=== PATIENT | female | born 1970 | race Caucasian/White ===

== ENCOUNTER 2020-10-03 12:53 | Outpatient (REF) | payer OTHER, SELFPAY ==
--- NOTE | ~2020-10-03 | MM_ITS ---
EXAMINATION: MM SCREENING DIGITAL BREAST TOMOSYNTHESIS, BILATERAL CLINICAL INFORMATION: Screening. Asymptomatic. Age 49. No prior breast imaging. No known family history breast cancer. The lifetime risk of breast cancer based on the Tyrer-Cuzick Model is 7%. COMPARISON: None (current study represents initial baseline exam). TECHNIQUE: Digital breast tomosynthesis is performed in both the craniocaudal and mediolateral oblique views along with computer-aided detection (CAD). Synthesized 2D images are generated from the tomosynthesis. FINDINGS: There are scattered areas of fibroglandular density (ACR BI-RADS breast composition Category b). The left breast is unremarkable. There is no significant mass or architectural abnormality. Neither breast shows abnormal calcifications. The axilla and skin contours are unremarkable. The right breast has grouped smooth partially obscured nodularity upper outer quadrant ranging in size 2-5 mm better appreciated on tomography. This may represent focal fibrocystic changes. There is a group of 2 or 3 nodules mid central upper outer quadrant and smaller more numerous nodularity more posteriorly upper outer quadrant. Patient will be recalled for additional imaging. MM/MM tomosynthesis screening BI IMPRESSION: 1. Right: Regional grouped small nodularity upper outer quadrant, possibly fibrocystic changes. 2. Left: No mammographic evidence of malignancy. ASSESSMENT: BI-RADS 0: Incomplete - Need Additional Imaging Evaluation RECOMMENDATION: 1. Additional views of the right breast (3-D spot exaggerated CC, 3-D spot ML). 2. Targeted ultrasound right breast. 3. Radiology department staff will contact the patient for additional imaging. This patient's information was entered into a reminder system with a target due date for their next mammogram.
== END 2020-10-03 12:54 | disposition home or self-care (01) ==
LOC: HO.MAMMO 12:53
PROVIDERS: Visit Provider Internal Medicine
DX: Z12.31 Encounter for screening mammogram for malignant neoplasm of breast (principal)
CPT/HCPCS: 77063; 77067

== ENCOUNTER 2020-10-08 12:45 | Outpatient (REF) | payer OTHER, SELFPAY ==
--- NOTE | ~2020-10-08 | MM_ITS ---
EXAMINATION: MM DIAGNOSTIC DIGITAL BREAST TOMOSYNTHESIS, RIGHT US DIAGNOSTIC ULTRASOUND BREAST, RIGHT CLINICAL INFORMATION: Recall from baseline exam for fine grouped nodularity upper outer quadrant and central 9:00 right breast. No known family history breast cancer. TC score 7%. COMPARISON: Mammography: 10/03/2020 TECHNIQUE: Digital breast tomosynthesis is performed. 2D images are generated from the tomosynthesis. The following views are obtained: Spot CC, spot ML x2 Ultrasound right breast is targeted to the outer and upper outer quadrant. Grayscale imaging and color Doppler are performed without and with harmonics. FINDINGS: There are scattered areas of fibroglandular density (ACR BI-RADS breast composition Category b). The grouped nodularity posterior upper outer quadrant appears less conspicuous. There is no dominant nodularity or architectural distortion. There are 2 small nodule central 9:00 position with smooth margins. Ultrasound demonstrates 4 mm cyst central 9:00 position 8 cm from nipple with smaller adjacent satellite cyst. There is questionable fine micronodularity in the upper outer quadrant under 3 mm. No dominant nodularity or architectural distortion. No focal duct ectasia. Results are discussed with the patient and her at time of visit. MM/MM tomosynthesis added views R IMPRESSION: 1. Small cysts central 9:00 right breast mid depth. 2. Probable benign fine fibronodular parenchymal pattern upper outer right breast on baseline imaging. ASSESSMENT: BI-RADS 3: Probably Benign RECOMMENDATION: Diagnostic right mammography in 6 months. This patient's information was entered into a reminder system with a target due date for their next mammogram.
== END 2020-10-08 12:46 | disposition home or self-care (01) ==
LOC: HO.MAMMO 12:45
PROVIDERS: Visit Provider Internal Medicine
DX: N63.15 Unspecified lump in the right breast, overlapping quadrants (principal)
CPT/HCPCS: 76642; 77061; 77065

== ENCOUNTER 2020-12-27 08:58 | Outpatient (REF) | payer OTHER, SELFPAY ==
[2020-12-27 11:26] LABS: MANUAL DIFF FLAG NO
[2020-12-27 11:35] LABS: Basophils Absolute Auto 0.1 X10*3/uL (0.0-0.2); Basophils Percent Auto 0.6 % (0-2); Eosinophils Absolute Auto 0.3 X10*3/uL (0.0-0.4); Eosinophils Percent Auto 3.2 % (0-4); Hematocrit 35.4 % (37-47); Hemoglobin 12.1 g/dl (12.0-16.0); Imm Gran Abs Auto 0.03 X10*3/uL (0.00-0.03); Imm Gran Pct Auto 0.3 % (0.0-0.4); Lymphocytes Absolute Auto 3.1 X10*3/uL (1.2-4.9); Lymphocytes Percent Auto 36.1 % (20-40); Mean Corpuscular HGB Conc 34.2 g/dl (31.0-35.0); Mean Corpuscular Hemoglobin 32.7 pg (27.0-33.0); Mean Corpuscular Volume 95.7 fL (80-98); Mean Platelet Volume 9.1 fL (9.4-12.3); Monocytes Absolute Auto 0.9 X10*3/uL (0.1-1.2); Monocytes Percent Auto 10.4 % (2-11); Neutrophils Absolute Auto 4.3 X10*3/uL (2.0-8.3); Neutrophils Percent Auto 49.4 % (45-73); Platelet Count 404 X10*3/uL (160-400); Red Cell Distribution Width 12.3 % (11.0-16.0); White Blood Count 8.7 X10*3/uL (4.8-10.8)
[2020-12-27 11:51] LABS: Alanine Aminotransferase 16 U/L (0-31); Albumin Level 4.2 g/dL (3.5-5.0); Alkaline Phosphatase 63 U/L (39-117); Anion Gap 11 (12-20); Aspartate Amino Transferase 17 U/L (5-31); Bilirubin Total 0.5 mg/dL (0.0-1.0); Blood Urea Nitrogen 13 mg/dL (9-16); Calcium 9.2 mg/dL (8.4-10.2); Carbon Dioxide 24 mmol/L (22-29); Chloride 106 mmol/L (96-108); Cholesterol 191 mg/dL; Estimated Glomerular Filt Rate > 60; Glucose Fasting 90 mg/dL (60-99); HDL Cholesterol 45 mg/dL; LDL Cholesterol Calculated 131 mg/dl; Potassium 4.2 mmol/L (3.3-5.1); Sodium 137 mmol/L (135-145); Total Protein 6.6 g/dL (6.5-8.0); Triglycerides 77 mg/dL
[2020-12-27 12:19] LABS: TSH reflex Free T4 2.71 uIU/mL (0.32-4.0)
== END 2020-12-27 08:59 | disposition home or self-care (01) ==
LOC: HO.HMGCLDS 08:58
PROVIDERS: PCP Internal Medicine; Visit Provider Internal Medicine
DX: Z00.01 Encounter for general adult medical examination with abnormal findings (principal); E66.09 Other obesity due to excess calories; Z72.0 Tobacco use
CPT/HCPCS: 36415; 80053; 80061; 84443; 85025

== ENCOUNTER 2021-02-26 13:58 | Outpatient (REF) | payer OTHER, SELFPAY ==
[2021-02-26 14:58] LABS: Influenza A PCR NEGATIVE (Negative); Influenza B PCR NEGATIVE (Negative); Resp Syncy Virus RNA Qual PCR NEGATIVE (Negative); SARS COV2 PCR INHOUSE NEGATIVE (Negative)
== END 2021-02-26 13:59 | disposition home or self-care (01) ==
LOC: HO.LNP 13:58
PROVIDERS: Visit Provider Physician Assistant
DX: Z20.822 Contact with and (suspected) exposure to COVID-19 (principal)
CPT/HCPCS: 0241U

== ENCOUNTER 2021-04-23 12:52 | Outpatient (REF) | payer OTHER, SELFPAY ==
--- NOTE | ~2021-04-23 | MM_ITS ---
EXAMINATION: MM DIAGNOSTIC DIGITAL BREAST TOMOSYNTHESIS, RIGHT CLINICAL INFORMATION: Probable benign fibronodular pattern upper outer right breast initially noted at baseline screening. No known family history breast cancer. TC score 7%. COMPARISON: Mammography: 10/08/2020, 10/03/2020 (BI-RADS 0); targeted right breast ultrasound 10/08/2020. TECHNIQUE: Digital breast tomosynthesis is performed in both the craniocaudal and mediolateral oblique views along with computer-aided detection (CAD). Synthesized 2D images are generated from the tomosynthesis. FINDINGS: There are scattered areas of fibroglandular density (ACR BI-RADS breast composition Category b). Parenchymal pattern is similar to baseline exam. Fibronodular asymmetries are stable. There is no developing density or interval mass or architectural abnormality. Right breast will be reassessed again at time of annual bilateral exam, due in 6 months. Results are provided to the patient at time of visit by the technologist. MM/MM tomosynthesis diagnostic RT IMPRESSION: Stable parenchymal pattern, similar to baseline exam. ASSESSMENT: BI-RADS 3: Probably Benign RECOMMENDATION: Diagnostic mammography at time of annual bilateral exam, due in 6 months. This patient's information was entered into a reminder system with a target due date for their next mammogram.
== END 2021-04-23 12:53 | disposition home or self-care (01) ==
LOC: HO.MAMMO 12:52
PROVIDERS: PCP Internal Medicine; Visit Provider Internal Medicine
DX: R92.2 Inconclusive mammogram (principal)
CPT/HCPCS: 77061; 77065

== ENCOUNTER 2021-10-10 12:41 | Outpatient (REF) | payer OTHER, SELFPAY ==
--- NOTE | ~2021-10-10 | MM_ITS ---
EXAMINATION: MM DIAGNOSTIC DIGITAL BREAST TOMOSYNTHESIS, BILATERAL CLINICAL INFORMATION: One-year follow-up right breast density with cysts The lifetime risk of breast cancer based on the Tyrer-Cuzick Model is 6.7%. COMPARISON: Mammography: April 23, 2021 and studies dating back to October 03, 2020 TECHNIQUE: Digital breast tomosynthesis is performed in both the craniocaudal and mediolateral oblique views along with computer-aided detection (CAD). Synthesized 2D images are generated from the tomosynthesis. FINDINGS: There are scattered areas of fibroglandular density (ACR BI-RADS breast composition Category b). There is a stable appearance of the breast with no new abnormal dominant mass or suspicious grouping of microcalcifications. Recommend 1 year diagnostic study for continued follow-up of right breast findings. Results are provided to the patient at time of visit by the technologist. MM/MM tomosynthesis diagnostic BI IMPRESSION: There are no significant changes from prior study. ASSESSMENT: BI-RADS 3: Probably Benign RECOMMENDATION: Diagnostic mammography at time of next annual exam, due in 12 months. This patient's information was entered into a reminder system with a target due date for their next mammogram.
== END 2021-10-10 12:42 | disposition home or self-care (01) ==
LOC: HO.MAMMO 12:41
PROVIDERS: PCP Internal Medicine; Visit Provider Internal Medicine
DX: N63.10 Unspecified lump in the right breast, unspecified quadrant (principal)
CPT/HCPCS: 77061; 77062; 77065; 77066

== ENCOUNTER 2022-05-20 09:04 | Emergency (ER) | payer BC, SELFPAY ==
--- NOTE | 2022-05-20 | ECG_ITS ---
Test Reason : chest pain Blood Pressure : / mmHG Vent. Rate : 074 BPM Atrial Rate : 074 BPM P-R Int : 136 ms QRS Dur : 078 ms QT Int : 382 ms P-R-T Axes : 033 033 047 degrees QTc Int : 424 ms Normal sinus rhythm Normal ECG No previous ECGs available Referred By: Generic ED Physician Electronically Signed By:NAZ SOTELO MD
[2022-05-20 09:30] VITALS: BP 141/83; PULSE 70; RESP 18; TEMP 36.7; O2SAT 97; BMI 31.2
[2022-05-20 13:00] VITALS: BP 132/78; PULSE 81; RESP 17; O2SAT 98
[2022-05-20 13:28] LABS: COVID-19 Test Negative (Negative); IDNOW Serial# 16C4AD1C; IDNOW Serial# BCCEAD1C; Influenza A Negative (Negative); Influenza B2 Negative (Negative)
--- NOTE | 2022-05-20 13:30 | ED_ITS ---
HPI - Dental/Oral General Chief complaint: Dental/Oral Stated complaint: Dental pain Time Seen by Provider: 05/20/22 13:07 Source: patient Mode of arrival: ambulatory Limitations: no limitations History of Present Illness HPI Narrative: 51-year-old female here with left upper dental pain and facial swelling since yesterday. Patient reports she has extensive dental caries and is followed by a dentist but did not call her dentist. She is taking Motrin and Tylenol but is concerned due to the swelling in her face that she may have an infection. She does report several episodes of vomiting yesterday but no vomiting today. No fever. No difficulty breathing or swallowing. patient reports while she was waiting room she had some chest tightness and feels like she was quite anxious. All symptoms are resolved now. She had no associated shortness of breath, vomiting, diaphoresis. Patient reports this epi sode occurred while she was rest and lasted several seconds and then self- resolved Related Data Home Medications Medication Instructions Recorded Confirmed ascorbate calcium (vitamin C) 500 500 mg PO DAILY 12/24/20 04/10/22 mg tablet cholecalciferol (vitamin D3) PO DAILY 12/24/20 04/10/22 multivitamin (Daily Multi-Vitamin 1 tab PO DAILY 12/24/20 04/10/22 tablet) zinc acetate PO DAILY 12/24/20 04/10/22 Previous Rx's Medication Instructions Recorded clotrimazole-betamethasone 1 1 appl topical ONCE 30 days #45 12/24/21 %-0.05 % topical cream grams prednisone 10 mg tablet 10 mg PO DAILY #28 tabs 03/30/22 hydroxyzine HCl 25 mg tablet 25 mg PO BEDTIME 30 days #30 tabs 04/10/22 permethrin 5 % topical cream 1 appl topical Q14D 2 doses #60 04/10/22 grams clindamycin HCl 150 mg capsule 150 mg PO Q8H #21 caps 05/20/22 ondansetron 4 mg disintegrating 4 mg PO Q6H PRN nausea and 05/20/22 tablet vomiting #15 tabs Allergies Allergy/AdvReac Type Severity Reaction Status Date / Time No Known Allergies Allergy Verified 05/20/22 09:29 Review of Systems Review of Systems: Yes all other systems are reviewed and are negative Constitutional: Constitutional: Reports no additional constitutional complaints, Denies body ache(s), Denies chills, Denies fever(s), Denies headache(s) and Denies weakness Eyes: Eyes: Reports no additional eye complaints and Denies change in vision ENT: Reports system reviewed and no additional complaints, except as documented, Reports dental pain, Denies dizziness, Reports facial pain, Denies headache(s), Denies nasal congestion, Denies nasal discharge and Denies neck pain Cardiovascular: Cardiovascular: Reports no additional cardiovascular complaints, Denies chest pain, Denies leg edema and Denies dyspnea Respiratory: Respiratory: Reports no additional respiratory complaints, Denies cough and Denies dyspnea Gastrointestinal: Gastrointestinal: Reports no additional gastrointestinal complaints, Denies abdominal pain, Denies diarrhea, Denies nausea and Denies vomiting Genitourinary: Genitourinary: Reports no additional female genitourinary complaints and Denies urinary incontinence Musculoskeletal: Musculoskeletal: Reports no additional musculoskeletal complaints, Denies back pain, Denies arthralgias, Denies joint swelling, Denies neck pain, Denies numbness and Denies tingling Integumentary/Breasts: Skin/Breast: Reports system reviewed and no additional complaints, except as docu and Denies rash Neurologic: Reports system reviewed and no additional complaints, except as documented, Denies Abnormal speech present, Denies dizziness, Denies headache(s), Denies numbness, Denies tingling and Denies weakness PMFSH Past Medical History Attestation statement: The following information was validated with the patient. Source: old records reviewed and nursing notes reviewed Family History Family History Mother Lupus Other Mental health disorder Substance use disorder Social History Social History Housing: House Patient Tobacco Use Status: Current everyday Tobacco user Cigarettes Per Day: 3 Years Smoked: 30 years e-Cigarette/Vaping Use: Never Used Advance Directives: No Advance Directives Information Provided: Yes service: No Current occupational status: employed Cognitive needs: No Hearing needs: No Vision needs: Yes Physical Exam Vital Signs: Vital Signs: Last Vital Signs Temp 98.1 F 05/20/22 09:30 Pulse 81 05/20/22 13:00 Resp 17 05/20/22 13:00 BP 132/78 05/20/22 13:00 Pulse Ox 98 05/20/22 13:00 O2 Del Method 05/20/22 13:00 BMI result Body Mass Index 31.2 Const: General: cooperative, healthy appearing, comfortable and no acute distress Orientation/consciousness: patient oriented x3 Limitations: no limitations HEENT: Other: no trismus Head: Yes normal to inspection Head images: 1. + facial swelling. no palpable abscess Ears: hearing grossly normal bilaterally, TM's normal bilaterally and mastoids normal General nose exam: Normal external nose present Face and sinus: Yes normal facial exam Mouth: Normal oral and palatal mucosa present Teeth and gingiva: caries Teeth image: 1. extensive caries at the gum line there is erythema, swelling and tenderness with no palpable abscess Throat: Yes posterior oropharynx normal, Yes tonsils normal and Yes uvula midline Eyes: General: appearance normal, both eyes and all related structures Pupils: Equal, round and reactive pupils present Neck: Neck: Yes normal visual inspection, Yes full ROM, Yes no lymphadenopathy and Yes no meningeal signs Chest: Chest palpation & inspection: normal inspection of the chest Resp: Effort & Inspection: normal respiratory effort Auscultation: clear to auscultation bilaterally Cardio: Rate: regular rate Rhythm: regular rhythm Peripheral pulses: Peripheral pulses 2+ throughout GI: Inspection: Yes normal to inspection Palpation (GI): Soft to palpation and nontender Auscultation: normal bowel sounds Back/Spine/Pelvis: Thoracic/Lumbar Spine: thoracic and lumbar spine normal to inspection Skin: General skin exam: no rashes or lesions noted Neuro: General: patient oriented x3, no meningeal signs, no focal motor deficits and normal sensation to monofilament Cranial nerves: Yes Equal, round and reactive pupils present Cognition (Neuro): normal cognition Speech: No Abnormal speech present Gait exam (Neuro): Normal gait present Motor exam (neuro): 5/5 motor strength present throughout Extrem: General: Yes normal to inspection Medical Decision Making Medical Decision Making MDM Narrative: 51-year-old female here with left-sided facial swelling and dental pain since yesterday. Patient with history of extensive dental caries. has not called her dentist follow-up. Has been taking Motrin and Tylenol. Did have several episodes of vomiting last night but no nausea or vomiting today. No abdominal pain. On exam patient with extensive dental caries. Patient with swelling, erythema at the gum line with no palpable abscess. Patient with some slight left facial swelling with no obvious abscess or trismus. overall patient nontoxic, afebrile. Patient was started on oral antibiotic and given sublingual Zofran for home. Recommend she follow up outpatient with her dentist. She should return for any worsening signs or symptoms. Differential Diagnosis Differential Diagnoses: The differential diagnosis associated with the presentation includes No evidence of Helder's angina, dental abscess Lab Data MDM Lab Attestation statement: I reviewed the patient's lab results. Labs: Lab Results 05/20/22 05/20/22 Range/Units 13:03 13:03 COVID-19 (TANISHA) Negative (Negative) COVID-19 Clin Com See Note Influenza Type A (HAZEL) Negative (Negative) Influenza Type B (HAZEL) Negative (Negative) Influenza A & B Note See Note Independent Interpretation I performed an independent interpretation of an: EKG Discharge Plan Discharge Clinical Impression: Tooth infection Patient Disposition: Home, Self-Care Instructions: Toothache (ED) Additional Instructions: Please follow-up with her dentist Avoid smoking Return for difficulty with opening the mouth, fever, worsening swelling or pain Continue Motrin and Tylenol Prescriptions: New clindamycin HCl 150 mg capsule 150 mg PO Q8H Qty: 21 0RF ondansetron 4 mg tablet,disintegrating 4 mg PO Q6H PRN (Reason: nausea and vomiting) Qty: 15 0RF No Action multivitamin [Daily Multi-Vitamin] Tablet 1 tab PO DAILY ascorbate calcium (vitamin C) 500 mg tablet 500 mg PO DAILY cholecalciferol (vitamin D3) PO DAILY zinc acetate PO DAILY clotrimazole-betamethasone 1-0.05 % cream 1 appl topical ONCE 30 Days Qty: 45 1RF prednisone 10 mg tablet 10 mg PO DAILY Qty: 28 0RF Rx Instructions: 6 pills by mouth day 1, 6 pills by mouth day 2, 5 pills by mouth day 3, 4 pills by mouth day 4, 3 pills by mouth day 5, 2 pills by mouth day 6, 1 pill by mouth day 7 and 1 pill by mouth day 8. permethrin 5 % cream 1 appl topical Q14D Qty: 60 0RF Rx Instructions: apply second treatment 14 days after first treatment hydroxyzine HCl 25 mg tablet 25 mg PO BEDTIME 30 Days Qty: 30 0RF Referrals: Rosaura Gilbert MD [Primary Care Provider] - 1 week Interventions: ED Discharge Assessment Last Done: 05/20/22 13:35 Discharge Date/Time: 05/20/22 13:36
== END 2022-05-20 13:36 | disposition home or self-care (01) ==
PROVIDERS: Emergency Provider Emergency Medicine; PCP Internal Medicine
DX: K04.7 Periapical abscess without sinus (principal); K08.89 Other specified disorders of teeth and supporting structures; K02.9 Dental caries, unspecified; R07.89 Other chest pain; Z20.822 Contact with and (suspected) exposure to COVID-19; F17.210 Nicotine dependence, cigarettes, uncomplicated
CPT/HCPCS: 87502; 87635; 93005; 99283

== ENCOUNTER 2023-02-18 08:03 | Outpatient (AMB) | payer BC, SELFPAY ==
[2023-02-18 08:10] VITALS: BP 110/70; PULSE 84; TEMP 36.4; O2SAT 97
--- NOTE | 2023-02-18 08:10 | MHC.OFFWIV ---
Intake Vital Signs 02/18/23 08:10 Height 5 ft BP 110/70 Blood Pressure Location Rt brachial Position Sitting Pulse 84 Pulse Source Pulse Oximeter Temp 97.6 F Temp Source Temporal Artery Scan Pulse Oximetry (%) 97 Oxygen Delivery Method Room Air Intake Visit Reasons: EP, headache, congestion, cough ([phone]) Intake Note: pt is here for c.o headache, congestion, cough Patient Tobacco Use Status: Current everyday Tobacco user Allergies No Known Allergies Allergy (Verified 02/18/23 08:11) Do you need a note to return to daycare/school/sports/work: Yes HPI HPI Comments History of Present Illness Details This is a 52-year-old female with no stated past medical history presenting for evaluation of a cough and sinus congestion that she has had for the past 3 weeks. Patient states that she has been taking test for COVID-19 at home, all of which have been negative. Patient reports intermittent subjective fevers but denies having any chills, ear pain, sore throat, shortness of breath, chest pain, nausea, vomiting, abdominal pain or back pain. [facility] Family History Mother Lupus Other Mental health disorder Substance use disorder Social History Housing: House Patient Tobacco Use Status: Current everyday Tobacco user Cigarettes Per Day: 3 Years Smoked: 30 years e-Cigarette/Vaping Use: Never Used service: No Current occupational status: employed Cognitive needs: No Hearing needs: No Vision needs: Yes Review of Systems Const All systems reviewed & are unremarkable except as noted in HPI and below Denies chills and Reports fever(s) (subjective) Eyes Reports as per HPI ENT Reports no additional complaints Card Reports as per HPI Resp Reports as per HPI GI Reports as per HPI Skin/Breast Reports system reviewed and no additional complaints, except as documented Physical Exam Vital Signs: Last Vital Signs Temp 97.6 F 02/18/23 08:10 Pulse 84 02/18/23 08:10 BP 110/70 02/18/23 08:10 Pulse Ox 97 02/18/23 08:10 Oxygen Delivery Method Room Air 02/18/23 08:10 Pt is afebrile. Const General: cooperative, comfortable, no acute distress, alert and awake; No ill appearing Nutritional Appearance: well nourished Orientation/consciousness: patient oriented x3 Limitations: no limitations HEENT Head: Yes normal to inspection Ears: hearing grossly normal bilaterally, external ears normal, TM's normal bilaterally and EAC's normal General nose exam: Normal external nose present Face and sinus: Yes normal facial exam Mouth: Normal oral and palatal mucosa present and moist mucous membranes Teeth and gingiva: dentition normal Throat: Yes posterior oropharynx normal Eyes General: appearance normal, both eyes and all related structures Alignment and Position: alignment normal Eyelids: Yes eyelids normal Conjunctivae: conjunctivae normal Sclerae: sclerae normal Pupils: Equal, round and reactive pupils present EOM: EOMs intact bilaterally Neck Lymphatic: no lymphadenopathy noted Resp Effort & Inspection: normal respiratory effort, no audible wheezes, not labored, no respiratory distress and no use of accessory muscles Auscultation: clear to auscultation bilaterally Cardio Rate: regular rate Rhythm: regular rhythm Skin General skin exam: no rashes or lesions noted Neuro General: patient oriented x3 Cranial nerves: Yes Equal, round and reactive pupils present Psych Appearance: grossly normal Mental Status: mental status grossly normal Insight: Good insight present (Psych) Judgement: Good judgement present (Psych) Assessment & Plan Assessment & Plan (1) Viral syndrome: Code(s): B34.9 - Viral infection, unspecified Plan Ibuprofen or Tylenol as needed for fever and myalgias, increase clear fluids daily, follow-up with primary care provider within 7-10 days if symptoms do not resolve. Coding Level of Care Code Est Pt Level 3 (92755) Diagnoses Viral syndrome B34.9 Time Spent (min) 20
== END 2023-02-18 08:58 | disposition home or self-care (01) ==
PROVIDERS: PCP Internal Medicine; Visit Provider Physician Assistant
DX: B34.9 Viral infection, unspecified (principal)
CPT/HCPCS: 99213

== ENCOUNTER 2023-07-21 15:58 | Outpatient (AMB) | payer BC, SELFPAY ==
[2023-07-21 16:07] VITALS: BP 112/70; PULSE 82; TEMP 36.6; O2SAT 98
--- NOTE | 2023-07-21 16:07 | MHC.OFFWIV ---
Intake Vital Signs 07/21/23 16:07 Height 5 ft BP 112/70 Blood Pressure Location Rt brachial Position Sitting Pulse 82 Pulse Source Pulse Oximeter Temp 97.9 F Temp Source Oral Pulse Oximetry (%) 98 Oxygen Delivery Method Room Air Intake Visit Reasons: EP mouth pain Intake Note: pt is here for mouth pain, suspects its an infected tooth Patient Tobacco Use Status: Current everyday Tobacco user Allergies No Known Allergies Allergy (Verified 07/21/23 16:10) Do you need a note to return to daycare/school/sports/work: No HPI HPI Comments History of Present Illness Details 52 y/o female patient who presents to walk in clinic with c/o gum and tooth ache. Pt has several teeth decay and need extraction. Her regular dentist retired last week and now Pt has no dentist. She was told she needed to remove all her upper teeth and obtain dentures. Pt needed to have enough funds for this procedure. [facility] Family History Mother Lupus Other Mental health disorder Substance use disorder Social History Housing: House Patient Tobacco Use Status: Current everyday Tobacco user Cigarettes Per Day: 3 Years Smoked: 30 years e-Cigarette/Vaping Use: Never Used service: No Current occupational status: employed Cognitive needs: No Hearing needs: No Vision needs: Yes Review of Systems Const All systems reviewed & are unremarkable except as noted in HPI and below Physical Exam Vital Signs: Last Vital Signs Temp 97.9 F 07/21/23 16:07 Pulse 82 07/21/23 16:07 BP 112/70 07/21/23 16:07 Pulse Ox 98 07/21/23 16:07 Oxygen Delivery Method Room Air 07/21/23 16:07 Const General: comfortable and no acute distress Orientation/consciousness: patient oriented x3 HEENT Face and sinus: Yes sinuses nontender Mouth: moist mucous membranes Teeth and gingiva: abnormal tooth and associated gingiva (Dark, chipped upper jaw teeth, decayed. ), gingiva abnormal diffusely erythematous and tender and poor dentition Teeth image: 1. All the front teeth decay, dark rotten and broken in half. Erythematous Gums. Throat: Yes posterior oropharynx normal Neuro General: patient oriented x3, gait normal and moves all extremities Psych Speech and movement: Normal speech and movement present Assessment & Plan Assessment & Plan (1) Tooth pain: Code(s): K08.89 - Other specified disorders of teeth and supporting structures Plan: - Advised to find a dentist [facility] for extractions - PCN for the active on going infection. - Recom Oragel OTC Medications: New penicillin V potassium 500 mg PO TID 10 days 30 tabs 0RF K08.89 - Other specified disorders of teeth and supporting structures Coding Level of Care Code Est Pt Level 3 (57879) Diagnoses Tooth pain K08.89 Time Spent (min) 15
== END 2023-07-21 16:35 | disposition home or self-care (01) ==
PROVIDERS: PCP Physician Assistant; Visit Provider Nurse Practitioner Family
DX: K08.89 Other specified disorders of teeth and supporting structures (principal)
CPT/HCPCS: 99213

== ENCOUNTER 2023-11-17 12:55 | Outpatient (AMB) | payer BC, SELFPAY ==
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
[2023-11-17 13:04] VITALS: BP 110/76; PULSE 73; RESP 14; O2SAT 98; BMI 33.3
== END 2023-11-17 13:57 | disposition home or self-care (01) ==
PROVIDERS: PCP Physician Assistant; Visit Provider Physician Assistant
DX: Z00.00 Encounter for general adult medical examination without abnormal findings (principal); F33.2 Major depressive disorder, recurrent severe without psychotic features; M79.672 Pain in left foot; Z72.0 Tobacco use
CPT/HCPCS: 96127; 99396

== ENCOUNTER 2023-11-24 06:09 | Outpatient (REF) | payer BC, SELFPAY ==
[2023-11-24 06:23] LABS: MANUAL DIFF FLAG NO
[2023-11-24 07:11] LABS: Basophils Percent Auto 0.5 % (0-2); Eosinophils Absolute Auto 0.3 X10*3/uL (0.0-0.4); Eosinophils Percent Auto 3.7 % (0-4); Hematocrit 35.5 % (37.0-47.0); Hemoglobin 12.2 g/dl (12.0-16.0); Imm Gran Abs Auto 0.04 X10*3/uL (0.00-0.03); Imm Gran Pct Auto 0.5 % (0.0-0.4); Lymphocytes Absolute Auto 2.6 X10*3/uL (1.2-4.9); Lymphocytes Percent Auto 34.2 % (20-40); Mean Corpuscular HGB Conc 34.4 g/dl (31.0-35.0); Mean Corpuscular Hemoglobin 32.6 pg (27.0-33.0); Mean Corpuscular Volume 94.9 fL (80.0-98.0); Mean Platelet Volume 8.6 fL (9.4-12.3); Monocytes Absolute Auto 0.7 X10*3/uL (0.1-1.2); Monocytes Percent Auto 8.6 % (2-11); Neutrophils Percent Auto 52.5 % (45-73); Platelet Count 377 X10*3/uL (160-400); Red Blood Count 3.74 X10*6/uL (4.20-5.50); Red Cell Distribution Width 12.9 % (11.0-16.0); White Blood Count 7.6 X10*3/uL (4.8-10.8)
[2023-11-24 07:56] LABS: Alanine Aminotransferase 16 U/L (0-31); Albumin Level 4.1 g/dL (3.5-5.0); Alkaline Phosphatase 76 U/L (39-117); Anion Gap 14 (12-20); Aspartate Amino Transferase 16 U/L (5-31); Bilirubin Total 0.5 mg/dL (0.0-1.0); Blood Urea Nitrogen 12 mg/dL (9-16); Calcium 9.5 mg/dL (8.4-10.2); Carbon Dioxide 23 mmol/L (22-29); Chloride 107 mmol/L (96-108); Cholesterol 213 mg/dL (<200); Estimated Glomerular Filt Rate 58; Glucose Fasting 96 mg/dL (60-99); HDL Cholesterol 53 mg/dL (>40); LDL Cholesterol Calculated 139 mg/dL (<100); Sodium 140 mmol/L (135-145); Total Protein 6.9 g/dL (6.5-8.0); Triglycerides 109 mg/dL (<150)
[2023-11-24 08:03] LABS: TSH reflex Free T4 3.85 uIU/mL (0.32-4.0)
[2023-11-24 08:15] LABS: Folate 8.4 ng/mL (> or = 4.0); Vitamin B12 394 pg/mL (200-900)
== END 2023-11-24 06:10 | disposition home or self-care (01) ==
LOC: HO.LAB 06:09
PROVIDERS: PCP Physician Assistant; Visit Provider Physician Assistant
DX: Z00.00 Encounter for general adult medical examination without abnormal findings (principal); F33.2 Major depressive disorder, recurrent severe without psychotic features
CPT/HCPCS: 36415; 80053; 80061; 82607; 82746; 84443; 85025

== ENCOUNTER 2023-11-29 13:50 | Outpatient (REF) | payer BC, SELFPAY ==
--- NOTE | ~2023-11-29 | MM_ITS ---
EXAMINATION: MM SCREENING DIGITAL BREAST TOMOSYNTHESIS, BILATERAL CLINICAL INFORMATION: Screening. Asymptomatic. COMPARISON: Mammography: Comparison is made with available priors TECHNIQUE: Digital breast mammography with tomosynthesis is performed in both the craniocaudal and mediolateral oblique views along with computer-aided detection (CAD). FINDINGS: There are scattered areas of fibroglandular density (ACR BI-RADS breast composition Category b). There are no significant masses, abnormal calcifications, or other abnormalities. MM/MM tomosynthesis screening BI IMPRESSION: No mammographic evidence of malignancy. ASSESSMENT: BI-RADS BI-RADS 1 - Negative RECOMMENDATION: Routine annual mammography screening. 1 year F/U This examination should not preclude the clinical evaluation of a suspicious palpable abnormality. This patient's information was entered into a reminder system with a target due date for their next mammogram. Electronically signed by: Aracelis Sanchez DO 12/13/2023 05:53 PM EDT
== END 2023-11-29 13:51 | disposition home or self-care (01) ==
LOC: HO.MAMMO 13:50
PROVIDERS: PCP Physician Assistant; Visit Provider Physician Assistant
DX: Z12.31 Encounter for screening mammogram for malignant neoplasm of breast (principal)
CPT/HCPCS: 77063; 77067

== ENCOUNTER → 2023-11-29 14:00 | Outpatient (BNV) | payer BC, SELFPAY | PROVIDERS: PCP Physician Assistant; Visit Provider Internal Medicine | DX: Z12.31 Encounter for screening mammogram for malignant neoplasm of breast (principal) | CPT/HCPCS: 77063; 77067 ==

== ENCOUNTER 2023-12-16 13:52 | Outpatient (AMB) | payer BC, SELFPAY ==
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
[2023-12-16 14:05] VITALS: BP 118/86; PULSE 79; RESP 14; O2SAT 98; BMI 33.7
== END 2023-12-16 14:31 | disposition home or self-care (01) ==
PROVIDERS: PCP Physician Assistant; Visit Provider Physician Assistant
DX: F33.2 Major depressive disorder, recurrent severe without psychotic features (principal); R94.4 Abnormal results of kidney function studies; E78.00 Pure hypercholesterolemia, unspecified; M25.50 Pain in unspecified joint

== ENCOUNTER → 2023-12-16 13:52 | Outpatient (BNVA) | payer BC, SELFPAY | PROVIDERS: PCP Physician Assistant; Visit Provider Physician Assistant | DX: F33.2 Major depressive disorder, recurrent severe without psychotic features (principal); R94.4 Abnormal results of kidney function studies; E78.00 Pure hypercholesterolemia, unspecified; M25.50 Pain in unspecified joint | CPT/HCPCS: 96127 ==

== ENCOUNTER 2024-03-20 06:11 | Outpatient (REF) | payer BC, SELFPAY ==
[2024-03-20 07:51] LABS: Cholesterol 248 mg/dL (<200); HDL Cholesterol 56 mg/dL (>40); LDL Cholesterol Calculated 165 mg/dL (<100); Triglycerides 139 mg/dL (<150)
== END 2024-03-20 06:12 | disposition home or self-care (01) ==
LOC: HO.LAB 06:11
PROVIDERS: PCP Physician Assistant; Visit Provider Physician Assistant
DX: E78.00 Pure hypercholesterolemia, unspecified (principal)
CPT/HCPCS: 36415; 80061

== ENCOUNTER 2024-03-23 08:36 | Outpatient (AMB) | payer BC, SELFPAY ==
--- NOTE | 2024-03-23 08:50 | A.OFFPC_ITS ---
Vital Signs 03/23/24 08:51 Height 5 ft 1.02 in Weight 175 lb BMI 33.0 BP 106/74 Blood Pressure Location Rt brachial Position Sitting Pulse 72 Pulse Source Pulse Oximeter Pulse Oximetry (%) 99 Oxygen Delivery Method Room Air Intake Visit Reasons: labs Intake Note: Follow up labs. Passed on on 03/09/24 and a couple more episodes since. Has not been seen for it. Dolphin Researcher Required: No Allergies No Known Allergies Allergy (Verified 03/23/24 08:51) Tobacco use date assessed: 11/17/23 Dental Screening Dental Screen Date: 11/17/23 HPI labs HPI Details History of Present Illness The patient is a 53-year-old female presenting Today to discuss her cholesterol and with concerns of episodes of syncope and presyncope. On March 09, she experienced a syncopal event At home as witnessed by her . She is not sure if she actually lost consciousness or not. She states that she was watching TV and started to feel heavy and just kind of weak. She states that she just generally felt like she was very tired. She did not have any extremity weakness. She states that she decided to get up and go to bed and when she got up and was walking she felt that she had some tunnel vision and felt very hot. She did feel like she was about to collapse. Her got up and he assisted her to the ground. She states that she is not sure if she lost consciousness when she started to sit on the ground or not. It lasted about 3-5 minutes. No incontinence or feelings of confusion afterwards. She did not hit her head. Two additional episodes of presyncope occurred on separate occasions: one three days after the initial event and another at work, managed by placing her head between her legs, which alleviated symptoms. Associated symptoms included feeling hot, but without nausea, chest pain, palpitations, or shortness of breath. No prior medical interventions for syncope were documented, and potential dehydration due to inadequate water intake was mentioned. The patient also experiences episodic chest tightness radiating to her jaw which she thought to be due to anxiety, lasting 3-5 minutes, with a family history of myocardial infarction in her mother. no previous cardiac workup. Health Maintenance - Advised dietary modifications with low cholesterol intake. - Discussed the benefits of initiating a torvastatin for hyperlipidemia with family history of cardiovascular disease. - Scheduled for comprehensive cardiac ev aluations including EKG, 24-hour Holter monitor, carotid ultrasound, and nuclear stress test. - Emphasized the importance of hydration . Social History - Exercises: Recently started yoga. - Nutritional intake: Regular meal plann ing with focus on healthier dietary patterns. 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 Review of Systems - Cardiovascular: Denies chest pain, pal pitations, or shortness of breath during episodes. - Neurological: Denies headaches. denies numbness, tingling or weakness. No feeling of forgetfulness. No speech abnormality. - Respiratory: Denies shortness of breat h. - Musculoskeletal: Reports resting muscl e aches, resolved with physical therapy. Physical Exam General: Well developed, well nourished, in no acute distress. Appears stated age. Ears: Canals clear, TMs WNL. Hearing intact Neck: No lymphadenopathy noted. No carotid bruit. Cardiac: Normal rhythm, no murmurs . Radial pulses 2+ bilaterally. Lungs: clear, equal breath sounds Abdomen: soft, nontender, no CVA tenderness Extremities: no edema Neuro: alert, oriented x3, mood appropriate, strength intact, reflexes normal, Romberg test normal , cranial nerves 2-12 grossly intact. Tauqfu-[id number] and heel-to-toe walking without abnormality. FORMERLY [facility], [facility] Medical History (Updated 03/23/24 @ 09:48 by Rosanna Webb PA-C) Depression Ankle swelling Asthma Family History Mother Lupus Father Alcoholism Cardiovascular disease Psychiatric illness Other Mental health disorder Substance use disorder Social History (Updated 03/23/24 @ 08:54 by Destinee Teresa CMA) Housing: House Alcohol intake: current Patient Tobacco Use Status: Former Tobacco user Tobacco use type: Cigarette Cigarettes Per Day: 3 Years Smoked: 30 years e-Cigarette/Vaping Use: Currently Using Substance Use Type: Marijuana service: No Current occupational status: employed 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 1. Little interest or pleasure in doing things: several days 2. Feeling down, depressed, or hopeless: several days 3. Trouble falling or staying asleep, or sleeping too much: nearly every day 4. Feeling tired or having little energy: several days 5. Poor appetite or overeating: several days 6. Feeling bad about yourself - or that you are a failure or have let yourself or your family down: several days 7. Trouble concentrating on things, such as reading the newspaper or watching television: not at all 8. Moving or speaking so slowly that other people could have noticed. Or the opposite - being so fidgety or restless that you have been moving around a lot more than usual: not at all 9. Thoughts that you would be better off or of hurting yourself in some way: not at all Total score: 8 Depression Screening Interpretation: Positive Depression Screening Done: Yes 00164 - PHQ-9 Billing: Yes Source: Developed by Drs. Nile Duenas, Leanne Rasmussen, Michael Jj and colleagues, with an educational theodore from [employer]. Thrive Questionnaire Date Thrive assessed: 03/23/24 I am a: Patient What is your living situation today?: I have a steady place to live Within the past 12 months, did the food you bought not last and you didn't have the money to get more?: Never true Within the past 12 months, did you worry whether your food would run out before you got money to buy more?: Never true Do you have trouble paying for medicines?: No Do you have trouble getting transportation to medical appointments?: No Do you have trouble paying your heating and electricity bill?: No Do you have trouble taking care of your child, family member or friend?: No Do you have trouble with day-to-day activities such as bathing, preparing meals, shopping, managing finances, etc.?: No Are you currently unemployed and looking for a job?: No Are you interested in more education?: No Please select the resources that you would like help with: None Currently or been in a relationship where the following occur: No concerns reported THRIVE Score: 0 AUDIT C Alcohol Use Questionnaire (AUDIT-C) 1. How often do you have a drink containing alcohol?: Monthly or less 2. How many drinks containing alcohol do you have on a typical day when you are drinking?: 1 or 2 3. How often do you have six or more drinks on one occasion?: Never Total Score: 1 CARLOS MANUEL-7 AMB Questionnaire CARLOS MANUEL-7 Date CARLOS MANUEL - 7 assessed: 03/23/24 Feeling nervous, anxious, or on edge: 1 = Several days Not being able to stop or control worryin = Not at all Worrying too much about different things: 1 = Several days Trouble relaxin = Several days Being so restless that it is hard to sit still: 0 = Not at all Becoming easily annoyed or irritable: 0 = Not at all Feeling afraid as if something awful might happen: 1 = Several days Total CARLOS MANUEL-7 score (0-4 normal; 5-9 mild; 10-14 moderate; 15-21 severe): 4 Source: Developed by Drs. Nile Duenas, Leanne Rasmussen, Michael Jj and colleagues, with an educational theodore from [employer]. CARLOS MANUEL-7 Assessment Billing CARLOS MANUEL-7 Assessment Tool: CARLOS MANUEL-7 Assessment 46448 Physical exam (Primary Care) Vital Signs: Last Vital Signs Pulse 72 03/23/24 08:51 BP 106/74 03/23/24 08:51 Pulse Ox 99 03/23/24 08:51 Oxygen Delivery Method Room Air 03/23/24 08:51 BMI result Body Mass Index 33.0 Tobacco/Smoking Status: Tobacco use Status Tobacco use date assessed 11/17/23 03/23/24 08:54 Patient Tobacco Use Status Former Tobacco user 03/23/24 08:54 Tobacco use type Cigarette 03/23/24 08:54 e-Cigarette/Vaping Use Currently Using 03/23/24 08:54 PHQ-9: PHQ-9 Score PHQ-9: Total score 8 03/23/24 08:54 Depression Screening Interpretation: Positive Thrive Assessment: Date of Thrive Assessment Date Thrive assessed 03/23/24 03/23/24 08:54 Currently or been in a relationship where the following occur: No concerns reported Coding Level of Care Code Est Pt Level 4 (24788) Complex EM visit Add On G2211 Diagnoses Pure hypercholesterolemia E78.00 Hyperlipidemia type: pure hypercholesterolemia Palpitations R00.2 Pre-syncope R55 Chest pain, unspecified type R07.9 Chest pain type: unspecified Fam hx-ischem heart disease Z82.49 Additional Codes CARLOS MANUEL-7 Assessment Billing - CARLOS MANUEL-7 Assessment Tool: CARLOS MANUEL-7 Assessment 66237 ([id number]) PHQ-9 - 60942 - PHQ-9 Billing: Yes ([id number]) Assessment & Plan Assessment & Plan (1) Hyperlipidemia: Code(s): E78.5 - Hyperlipidemia, unspecified Category: Medical Qualifiers: Hyperlipidemia type: pure hypercholesterolemia Qualified Code(s): E78.00 - Pure hypercholesterolemia, unspecified Plan: We will start atorvastatin. Discussed risks and benefits and adverse effects of this medication. We will recheck labs in 8 weeks. (2) Palpitations: Code(s): R00.2 - Palpitations Category: Medical Plan: EKG today in office normal sinus rhythm. No prior study to compare. EKG interpreted by myself. Holter monitor, echo, stress test, carotid ultrasound, chest x-ray and labs ordered today. (3) Pre-syncope: Code(s): R55 - Syncope and collapse Category: Medical Plan: As above. Discussed warning signs that would require emergent medical treatment. (4) Chest pain: Code(s): R07.9 - Chest pain, unspecified Category: Medical Qualifiers: Chest pain type: unspecified Qualified Code(s): R07.9 - Chest pain, unspecified Plan: As above (5) Fam hx-ischem heart disease: Code(s): Z82.49 - Family history of ischemic heart disease and other diseases of the circulatory system Category: Medical Plan: As above Orders: Orders IRON PROFILE Today E78.00 - Pure hypercholesterolemia, unspecified, R00.2 - Palpitations, R07.9 - Chest pain, unspecified, R55 - Syncope and collapse, Z82.49 - Family history of ischemic heart disease and other diseases of the circulatory system Vitamin B12 and Folate Today E78.00 - Pure hypercholesterolemia, unspecified, R00.2 - Palpitations, R07.9 - Chest pain, unspecified, R55 - Syncope and collapse, Z82.49 - Family history of ischemic heart disease and other diseases of the circulatory system CA echo transthoracic complete Today E78.00 - Pure hypercholesterolemia, unspecified, R00.2 - Palpitations, R07.9 - Chest pain, unspecified, R55 - Syncope and collapse, Z82.49 - Family history of ischemic heart disease and other diseases of the circulatory system CA stress test Today E78.00 - Pure hypercholesterolemia, unspecified, R00.2 - Palpitations, R07.9 - Chest pain, unspecified, R55 - Syncope and collapse, Z82.49 - Family history of ischemic heart disease and other diseases of the circulatory system NM cardiolite stress test Today E78.00 - Pure hypercholesterolemia, unspecified, R00.2 - Palpitations, R07.9 - Chest pain, unspecified, R55 - Syncope and collapse, Z82.49 - Family history of ischemic heart disease and other diseases of the circulatory system XR chest 2V Today E78.00 - Pure hypercholesterolemia, unspecified, R00.2 - Palpitations, R07.9 - Chest pain, unspecified, R55 - Syncope and collapse, Z82.49 - Family history of ischemic heart disease and other diseases of the circulatory system ECG holter monitor 24 hour Today E78.00 - Pure hypercholesterolemia, unspecified, R00.2 - Palpitations, R07.9 - Chest pain, unspecified, R55 - Syncope and collapse, Z82.49 - Family history of ischemic heart disease and other diseases of the circulatory system US carotid duplex BI Today E78.00 - Pure hypercholesterolemia, unspecified, R00.2 - Palpitations, R07.9 - Chest pain, unspecified, R55 - Syncope and collapse, Z82.49 - Family history of ischemic heart disease and other diseases of the circulatory system Comprehensive Met. Panel Today E78.00 - Pure hypercholesterolemia, unspecified, R00.2 - Palpitations, R07.9 - Chest pain, unspecified, R55 - Syncope and collapse, Z82.49 - Family history of ischemic heart disease and other diseases of the circulatory system Complete Blood Count Auto Diff Today E78.00 - Pure hypercholesterolemia, unspecified, R00.2 - Palpitations, R07.9 - Chest pain, unspecified, R55 - Syncope and collapse, Z82.49 - Family history of ischemic heart disease and other diseases of the circulatory system TSH reflex Free T4 Today E78.00 - Pure hypercholesterolemia, unspecified, R00.2 - Palpitations, R07.9 - Chest pain, unspecified, R55 - Syncope and collapse, Z82.49 - Family history of ischemic heart disease and other diseases of the circulatory system Magnesium Today E78.00 - Pure hypercholesterolemia, unspecified, R00.2 - Palpitations, R07.9 - Chest pain, unspecified, R55 - Syncope and collapse, Z82.49 - Family history of ischemic heart disease and other diseases of the circulatory system CRP High Sensitivity Today E78.00 - Pure hypercholesterolemia, unspecified, R00.2 - Palpitations, R07.9 - Chest pain, unspecified, R55 - Syncope and collapse, Z82.49 - Family history of ischemic heart disease and other diseases of the circulatory system AMB EKG-In Office Today E78.00 - Pure hypercholesterolemia, unspecified, R00.2 - Palpitations, R07.9 - Chest pain, unspecified, R55 - Syncope and collapse, Z82.49 - Family history of ischemic heart disease and other diseases of the circulatory system Medications: New atorvastatin 10 mg PO BEDTIME 90 tabs 1RF
[2024-03-23 08:51] VITALS: BP 106/74; PULSE 72; O2SAT 99; BMI 33.0
== END 2024-03-23 09:39 | disposition home or self-care (01) ==
PROVIDERS: PCP Physician Assistant; Visit Provider Physician Assistant
DX: E78.00 Pure hypercholesterolemia, unspecified (principal); R00.2 Palpitations; R55 Syncope and collapse; R07.9 Chest pain, unspecified; Z82.49 Family history of ischemic heart disease and other diseases of the circulatory system

== ENCOUNTER → 2024-03-23 08:36 | Outpatient (BNVA) | payer BC, SELFPAY | PROVIDERS: PCP Physician Assistant; Visit Provider Physician Assistant | DX: E78.00 Pure hypercholesterolemia, unspecified (principal); R00.2 Palpitations; R55 Syncope and collapse; R07.9 Chest pain, unspecified; Z82.49 Family history of ischemic heart disease and other diseases of the circulatory system | CPT/HCPCS: 96127 ==

== ENCOUNTER 2024-03-23 09:54 | Outpatient (REF) | payer BC, SELFPAY ==
[2024-03-23 10:46] LABS: MANUAL DIFF FLAG NO
[2024-03-23 11:06] LABS: Basophils Absolute Auto 0.1 X10*3/uL (0.0-0.2); Basophils Percent Auto 0.7 % (0-2); Eosinophils Absolute Auto 0.2 X10*3/uL (0.0-0.4); Eosinophils Percent Auto 2.5 % (0-4); Hematocrit 38.1 % (37.0-47.0); Imm Gran Abs Auto 0.03 X10*3/uL (0.00-0.03); Imm Gran Pct Auto 0.3 % (0.0-0.4); Lymphocytes Absolute Auto 2.6 X10*3/uL (1.2-4.9); Lymphocytes Percent Auto 29.8 % (20-40); Mean Corpuscular HGB Conc 34.1 g/dl (31.0-35.0); Mean Corpuscular Hemoglobin 32.3 pg (27.0-33.0); Mean Corpuscular Volume 94.5 fL (80.0-98.0); Mean Platelet Volume 8.7 fL (9.4-12.3); Monocytes Absolute Auto 0.7 X10*3/uL (0.1-1.2); Monocytes Percent Auto 7.6 % (2-11); Neutrophils Absolute Auto 5.1 x10*3/uL (2.0-8.3); Neutrophils Percent Auto 59.1 % (45-73); Platelet Count 428 X10*3/uL (160-400); Red Blood Count 4.03 X10*6/uL (4.20-5.50); Red Cell Distribution Width 12.4 % (11.0-16.0); White Blood Count 8.7 X10*3/uL (4.8-10.8)
[2024-03-23 11:27] LABS: Alanine Aminotransferase 21 U/L (0-31); Albumin Level 4.3 g/dL (3.5-5.0); Alkaline Phosphatase 81 U/L (39-117); Anion Gap 12 (12-20); Aspartate Amino Transferase 18 U/L (5-31); Bilirubin Total 0.4 mg/dL (0.0-1.0); Blood Urea Nitrogen 12 mg/dL (9-16); Calcium 9.2 mg/dL (8.4-10.2); Carbon Dioxide 23 mmol/L (22-29); Chloride 109 mmol/L (96-108); Estimated Glomerular Filt Rate > 60; Glucose Random 82 mg/dL (60-115); Iron 90 mcg/dL (30-160); Magnesium 2.3 mg/dL (1.6-2.6); Percent Iron Saturation 35 % (15-50); Potassium 4.1 mmol/L (3.3-5.1); Sodium 140 mmol/L (135-145); Total Iron Binding Capacity 255 mcg/dL (228-428); Total Protein 7.5 g/dL (6.5-8.0); Unsaturated Iron Binding 165 ug/dL
[2024-03-23 11:42] LABS: TSH reflex Free T4 1.34 uIU/mL (0.32-4.0)
[2024-03-23 11:50] LABS: Folate 7.5 ng/mL (> or = 4.0); Vitamin B12 453 pg/mL (200-900)
[2024-03-25 08:14] LABS: CRP High Sensitivity 6.3 mg/L
== END 2024-03-23 09:55 | disposition home or self-care (01) ==
LOC: HO.WFDLDS 09:54
PROVIDERS: Visit Provider Physician Assistant
DX: R00.2 Palpitations (principal); R55 Syncope and collapse; R07.9 Chest pain, unspecified; Z82.49 Family history of ischemic heart disease and other diseases of the circulatory system; E78.00 Pure hypercholesterolemia, unspecified
CPT/HCPCS: 36415; 80053; 82607; 82746; 83540; 83735; 84443; 85025; 86141

== ENCOUNTER 2024-04-06 13:03 | Outpatient (REF) | payer BC, SELFPAY ==
--- NOTE | ~2024-04-06 | XR_ITS ---
CLINICAL HISTORY: R00.2 - Palpitations 2 view chest x-ray Comparison: None Findings: The lungs are clear. Normal size heart. No acute fracture. IMPRESSION: 1. No acute findings. This document has been electronically signed by: Jazmyne Perez MD on 04/08/2024 05:43:22
--- NOTE | ~2024-04-06 | US_ITS ---
EXAMINATION: BILATERAL CAROTID ULTRASOUND WITH DOPPLER HISTORY: R00.2 - Palpitations COMPARISON: There are no prior studies for comparison. TECHNIQUE: Real time and Color and Spectral doppler ultrasonography of the carotid and vertebral arteries was performed in multiple planes. FINDINGS: There is mild plaque at both carotid bulbs. VERTEBRAL FLOW DIRECTION: Antegrade bilaterally. PEAK SYSTOLIC VELOCITIES (in cm/sec): RIGHT: CCA: Prox: 101 Dist: 109 ICA: Prox: 155 Mid: 112 Dist: 114 ICA/CCA Ratio: 1.4 ECA: 100 Peak ICA EDV: 50.5 LEFT: CCA: Prox: 112 Dist: 99.7 ICA: Prox: 79.2 Mid: 90.4 Dist: 95.6 ICA/CCA Ratio: ECA: 0.85 Peak ICA EDV: 49.4 US/US carotid duplex BI IMPRESSION: Findings consistent with 50-79% diameter stenosis of the right proximal internal carotid artery and 0-49% stenosis of the left proximal internal carotid artery by criteria similar to NASCET. Electronically signed by: Nile Wallace MD 04/07/2024 07:32 AM [facility]
--- NOTE | 2024-04-06 13:49 | CA_ITS ---
Transthoracic Echocardiogram Patient (Last, First, Middle): Helga Gomes A Gender: Female Date of : 1970 Age: 53 Procedure Date: 04/06/2024 Procedure Type: Transthoracic Echocardiogram Location: OP Height: 152.4 cm Weight: 78.93 kg BSA: 1.76 m2 Heart Rate: bpm BP: 106 / 74 mmHg Utility Clerk: AKUA Referring MD: Rosanna Webb PA-C Oyster Unloader: Nino Whipple MD Symptoms: R00.2 - Palpitations Study Quality: Fair ECG Rhythm: Sinus Conclusions: - Essentially normal study Findings Left Ventricle Normal left ventricular size, thickness, and systolic function. The visually estimated ejection fraction is between 60-65%. Regional wall motion abnormalities can not be excluded due to suboptimal endocardial definition. Spectral Doppler is indicative of a normal filling pattern. Right Ventricle Normal right ventricular cavity size. Atria The left atrium is normal in size. There is lipomatous hypertrophy of the interatrial septum. There is no evidence of interatrial shunt. The right atrium was not well visualized. Aortic Valve The aortic valve structure and function is likely normal. There is no aortic valve stenosis. There is no aortic valve regurgitation. Mitral Valve Likely normal mitral valve structure and function. There is trace mitral valve regurgitation. There is no mitral valve stenosis. Pulmonic Valve The pulmonic valve was not well visualized. Tricuspid Valve Likely normal tricuspid valve structure and function. There is trace tricuspid valve regurgitation. The right ventricular systolic pressure is normal. The right ventricular systolic pressure is 13 mmHg. Normal right atrial pressure. Mild pulmonary hypertension is present. Great Vessels The pulmonary artery was not well visualized. There is no dilatation of the ascending aorta measuring 2.50 cm. Venous The inferior vena cava is normal in size and collapses greater than 50% with inspiration. Pericardium/Pleural The pericardium was not well visualized. Prior Study Comparison No prior study available for comparison. Measurements 2D Linear Measurements IVSd: 0.75 0.6-0.9/0.6-1.0 cm LVIDd: 4.56 3.9-5.3/4.2-5.9 cm LVIDd Index: 2.59 2.4-3.2/2.2-3.1 cm/m2 LVIDs: 2.73 2.0-3.6 cm LVPWd: 0.76 0.7-1.1 cm LA Diam: 3.20 2.7-3.8/3.0-4.0 cm LAIDs Index: 1.82 1.5-2.3 cm/m2 LV Mass: 133.75 67-162/88-224 g LV Mass Index: 76.00 43-95/49-115 g/m2 LVOT Diam: 1.80 3.0+(-)1.3 cm 2D Systolic Function EF 4C: 59.90 >55% Mitral Valve MV Pk E: 0.79 MV PK A: 0.62 MV Decel Time: 172.00 E/A: 1.30 E'Lateral: 9.46 E'Medial: 7.62 E/E' Med: 10.30 E/E' Lat: 8.30 PHT: 50.00 MVA PHT: 4.40 Decel [place]: 4.59 Aortic Valve AoV Pk Oswald: 1.23 AoV Mn Oswald: 0.85 AoV VTI: 0.30 AoV Pk Grad: 6.00 Aov Mn Grad: 3.00 JIMY Cont.VTI: 1.81 LVOT LVOT Pk Oswald: 0.94 LVOT Mn Oswald: 0.65 LVOT VTI: 0.21 LVOT Pk Grad: 4.00 LVOT Mn Grad: 2.00 LVOT Diam: 1.80 LVOT Area: 2.54 Diastolic Function MV Pk E: 0.79 MV Pk A: 0.62 E/A: 1.30 E'Medial: 7.62 E/E' Med: 10.30 E' Laterial: 9.46 E/E' Lat: 8.30 Right Ventricle TAPSE (mm): 23.60 TVS' Oswald: 11.20 Tricuspid Valve TR Pk Oswald: 1.62 TR Pk Grad: 10.00 RA Press: 3.00 RVSP: 13.00 Great Vessels Aorta Sinus of Valsalva: 3.07 2.0-3.[address] [place]: 2.64 1.7-3.4 cm Ao Asc: 2.50 2.1-3.4 cm Updated in Other Vendor System with Status of Final Nino Whipple MD electronically signed on 04/07/2024 1:37:57 PM with status of Final
== END 2024-04-06 13:04 | disposition home or self-care (01) ==
LOC: HO.US 13:03
PROVIDERS: PCP Physician Assistant; Visit Provider Physician Assistant
DX: R00.2 Palpitations (principal); R55 Syncope and collapse; R07.9 Chest pain, unspecified; Z82.49 Family history of ischemic heart disease and other diseases of the circulatory system; E78.00 Pure hypercholesterolemia, unspecified
CPT/HCPCS: 71046; 93225; 93306; 93880

== ENCOUNTER → 2024-04-06 13:05 | Outpatient (BNV) | payer BC, SELFPAY | PROVIDERS: PCP Physician Assistant; Visit Provider Radiology Diagnostic Radiology | DX: R00.2 Palpitations (principal) | CPT/HCPCS: 71046; 93880 ==

== ENCOUNTER → 2024-04-06 13:49 | Outpatient (BNV) | payer BC, SELFPAY | PROVIDERS: PCP Physician Assistant; Visit Provider Internal Medicine Cardiovascular Disease | DX: I27.20 Pulmonary hypertension, unspecified (principal) | CPT/HCPCS: 93306 ==

== ENCOUNTER 2024-05-03 09:55 | Outpatient (AMB) | payer BC, SELFPAY ==
--- NOTE | 2024-05-03 10:16 | A.OFFPC_ITS ---
Vital Signs 05/03/24 10:18 Height 5 ft 1 in Weight 176 lb 8 oz BMI 33.3 BP 112/70 Blood Pressure Location Rt brachial Position Sitting Respiration 14 Pulse 77 Pulse Source Pulse Oximeter Pulse Oximetry (%) 99 Oxygen Delivery Method Room Air Intake Visit Reasons: med review Intake Note: Follow up medication review. Projector Operator Required: No Allergies No Known Allergies Allergy (Verified 05/03/24 10:17) Medication List - Last Reconciled 05/03/24 by Rosanna Webb PA-C amitriptyline 10 mg PO BEDTIME [Ashwagandha .] aspirin 81 mg PO DAILY atorvastatin 10 mg PO BEDTIME [estroven .] Tobacco use date assessed: 05/03/24 Dental Screening Dental Screen Date: 11/17/23 HPI med review HPI Details History of Present Illness The patient is a 53-year-old female presenting today for a follow up. HEENT: She presents with upper respiratory symptoms and sinus pain. She reports having cold symptoms for approximately three weeks, with significant nasal congestion that was previously very severe but is now just persistent. She also reports a mild cough, presumed to be due to postnasal drip, without associated shortness of breath. In terms of ocular issues, the patient has experienced allergic conjunctivitis on multiple occasions in the past few months. She was previously treated with antibiotics through an urgent care service, which improved the condition. The patient notes the presence of a chalazion on the eyelid which has not resolved despite prior treatments. The patient will be referred to ophthalmology if the lesion does not improve further. Vasc: The patient also follows up for carotid artery disease. She was evaluated by vascular surgery and instructed to take baby aspirin due to minor plaque discovered via evaluation. Further monitoring is advised in six months. CV: Regarding hyperlipidemia, the patient is currently on a cholesterol medication without significant side effects, and continuation is recommended. Started this 6 weeks ago. Lastly, the patient reports episodes of chest tightness and jaw pain that began within the last few months, occurring three times, and is possibly exertional angina or related to stress. The patient has attempted antihypertensive therapies and referral to cardiology is underway. Additionally, there was an unsuccessful attempt for a nuclear stress test due to insurance denial. Health Maintenance - Continue statin medication for hyperli pidemia management - Monitor cholesterol and liver function tests after several more weeks of therapy - Ongoing medical management for cardiov ascular risk reduction - Tobacco cessation maintenance supporte d following historical use Social History - Employment: Employed locally at a [employer] office - Tobacco use: Former smoker, recently q uit following cardiac concerns Review of Systems - Respiratory: Reports mild cough, denie s shortness of breath - Cardiovascular: Denies recent palpitat ions; reports intermittent chest tightness - Ophthalmic: Reports recurrent episodes of allergic conjunctivitis Physical Exam General: Well developed, well nourished, in no acute distress. Appears stated age. HEENT: Nasal mucosa erythematous and edematous. purulent drainage noted. sinus tenderness present. TMs dome shaped with small air fluid levels. There is a small, erythematous lesion noted left lower eyelid. Cardiac: RRR, no murmurs Lungs: clear, equal breath sounds, slight wheezing noted. Abdomen: soft, nontender, no CVA tenderness, slight tenderness noted in sinus area Extremities: no edema Neuro: alert, oriented x3, mood appropriate Plan - Augmentin amoxicillin/clavulanic acid) prescribed to address sinus infection and prevent possible bacterial pneumonia - Albuterol inhaler provided to assist w ith bronchospasm and facilitate airway clearance - Referral to cardiology to evaluate int ermittent chest pain and jaw pain, and for further cardiovascular assessment - Ophthalmology consultation recommended if the eyelid lesion persists, to address potential surgical intervention - Insurance appeal denied for nuclear st ress test to appropriately assess cardiac risk due to multiple angina episodes. Treadmill stress and echo ordered. - Continue current statin regimen with f uture reassessment of cholesterol levels and liver enzymes - Clinical Information Systems Director on smoking cessation and monit or for respiratory improvements post- cessation - Reinforced continuity of vascular surg claudia follow-up and re-evaluation of carotid stenosis [facility] Medical History Depression Ankle swelling Asthma Family History Mother Lupus Father Alcoholism Cardiovascular disease Psychiatric illness Other Mental health disorder Substance use disorder Social History (Updated 05/03/24 @ 10:21 by Destinee Teresa CMA) Housing: House Alcohol intake: current Patient Tobacco Use Status: Former Tobacco user Tobacco use type: Cigarette Cigarettes Per Day: 3 Years Smoked: 30 years e-Cigarette/Vaping Use: Currently Using Substance Use Type: Marijuana service: No Current occupational status: employed 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 occupational 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/hazards: Yes (chemicals) Cognitive needs: No Hearing needs: No Vision needs: Yes Questionnaire Thrive Questionnaire Date Thrive assessed: 03/23/24 I am a: Patient What is your living situation today?: I have a steady place to live Within the past 12 months, did the food you bought not last and you didn't have the money to get more?: Never true Within the past 12 months, did you worry whether your food would run out before you got money to buy more?: Never true Do you have trouble paying for medicines?: No Do you have trouble getting transportation to medical appointments?: No Do you have trouble paying your heating and electricity bill?: No Do you have trouble taking care of your child, family member or friend?: No Do you have trouble with day-to-day activities such as bathing, preparing meals, shopping, managing finances, etc.?: No Are you currently unemployed and looking for a job?: No Are you interested in more education?: No Please select the resources that you would like help with: None Currently or been in a relationship where the following occur: No concerns reported THRIVE Score: 0 CARLOS MANUEL-7 AMB Questionnaire CARLOS MANUEL-7 Date CARLOS MANUEL - 7 assessed: 03/23/24 Source: Developed by Drs. Nile Duenas, Leanne Rasmussen, Michael Jj and colleagues, with an educational theodore from [employer]. Physical exam (Primary Care) Vital Signs: Last Vital Signs Pulse 77 05/03/24 10:18 Resp 14 05/03/24 10:18 BP 112/70 05/03/24 10:18 Pulse Ox 99 05/03/24 10:18 Oxygen Delivery Method Room Air 05/03/24 10:18 BMI result Body Mass Index 33.3 Tobacco/Smoking Status: Tobacco use Status Tobacco use date assessed 05/03/24 05/03/24 10:20 Patient Tobacco Use Status Former Tobacco user 05/03/24 10:21 Tobacco use type Cigarette 05/03/24 10:21 e-Cigarette/Vaping Use Currently Using 05/03/24 10:21 Thrive Assessment: Date of Thrive Assessment Date Thrive assessed 03/23/24 05/03/24 10:20 Currently or been in a relationship where the following occur: No concerns reported Coding Level of Care Code Est Pt Level 4 (19600) Complex EM visit Add On G2211 Diagnoses Bacterial sinusitis J32.9; B96.89 Pre-syncope R55 Chest pain, unspecified type R07.9 Chest pain type: unspecified Fam hx-ischem heart disease Z82.49 Assessment & Plan Assessment & Plan (1) Bacterial sinusitis: Code(s): J32.9 - Chronic sinusitis, unspecified; B96.89 - Other specified bacterial agents as the cause of diseases classified elsewhere Category: Medical (2) Pre-syncope: Code(s): R55 - Syncope and collapse Category: Medical (3) Chest pain: Code(s): R07.9 - Chest pain, unspecified Category: Medical Qualifiers: Chest pain type: unspecified Qualified Code(s): R07.9 - Chest pain, unspecified (4) Fam hx-ischem heart disease: Code(s): Z82.49 - Family history of ischemic heart disease and other diseases of the circulatory system Category: Medical Plan . Orders: Orders Lipid Panel Today B96.89 - Other specified bacterial agents as the cause of di seases classified elsewhere, E78.00 - Pure hypercholesterolemia, unspecified, J32.9 - Chronic sinusitis, unspecified, R05.9 - Cough, unspecified Liver Panel Today B96.89 - Other specified bacterial agents as the cause of diseases classified elsewhere, J32.9 - Chronic sinusitis, unspecified, R05.9 - Cough, unspecified XR chest 2V Today B96.89 - Other specified bacterial agents as the cause of diseases classified elsewhere, J32.9 - Chronic sinusitis, unspecified, R05.9 - Cough, unspecified CA stress test Today R07.9 - Chest pain, unspecified, R55 - Syncope and collapse, Z82.49 - Family history of ischemic heart disease and other diseases of the circulatory system CA echo transthoracic complete Today R00.2 - Palpitations, R07.9 - Chest pain, unspecified, R55 - Syncope and collapse, Z82.49 - Family history of ischemic heart disease and other diseases of the circulatory system Referrals Cardiology Referral R07.9 - Chest pain, unspecified, R55 - Syncope and collapse, Z82.49 - Family history of ischemic heart disease and other diseases of the circulatory system Ophthalmology Referral H02.9 - Unspecified disorder of eyelid Medications: New albuterol sulfate 90 mcg/actuation 2 puffs inhalation Q6H PRN 8.5 grams 0RF shortness of breath or wheezing amoxicillin-pot clavulanate 875-125 mg 1 tab PO Q12H 20 tabs 0RF
[2024-05-03 10:18] VITALS: BP 112/70; PULSE 77; RESP 14; O2SAT 99; BMI 33.3
--- OUTSIDE RECORDS SUMMARY | 2024-05-03 11:35 | XMS_ITS | Patient Health Record ---
Author Organization [facility] Address [address], [place] [id number] Care Team Providers Care Loss Control Technician Name Role Phone ISELA KAPLAN Primary Care Provider Karine Williamson Unavailable [phone] REASON FOR REFERRAL No Information Encounters Encounter Location Date Provider Diagnosis [address] [id number] 07/29/2023 Karine Williamson PLAN OF TREATMENT No Information Insurance Providers Payer Name Payer Address Payer Phone Subscriber Number Group Number Insured Name Patient Relationship to Insured Coverage Start Date Coverage End Date [facility] [address] [place] [address] [id number] ALEX FERNANDEZ Self - patient is the insured
--- OUTSIDE RECORDS SUMMARY | 2024-05-03 11:35 | XMS_ITS ---
Author Organization [facility], [facility] Address [address] [place] [phone] Care Team Providers Care Education Professor Name Role Phone ISELA KAPLAN Primary Care Provider Karine Williamson [phone] REASON FOR VISIT new patient, NO SHOW Encounters Encounter Location Date Provider Diagnosis [facility], [address] [id number] 07/29/2023 Karine Williamson PLAN OF TREATMENT No Information Progress Notes * HERBERTH FERNANDEZINDOB:1970 ([age] yo F)Acc No.[id number]:07/29/2023 Progress Notes Patient:??ALEX FERNANDEZ Provider:??Karine Williamson DNP :1970?Age:52 Y?Sex:Fe male Date:07/29/2023 Phone: Address:[address] [place] [address] [place], [place] Pcp:ISELA KAPLAN Subjective: * Chief Complaints: * ?New patientNO SHOW * Medical History:?? * Surgical History:?? * Ocular Surgical History:?? * Hospitalization/Major Diagno stic Procedure:?? * Medications:?? Objective: Assessment: Plan: * Treatment: * Procedure Codes:?? Care Plan: * Problems:?? * Billing Information: * Visit Code:?? * Procedure Codes:?? * Sign off status: Completed true * Provider:??Karine Williamson DNP Date:??11/2023
--- OUTSIDE RECORDS SUMMARY | 2024-05-03 11:35 | XMS_ITS | Patient Health Record ---
Author Organization [facility] Address [address] [place] [address] Care Team Providers Care Salvage Repairer Name Role Phone ABIDA RICH Unavailable [phone] Reason For Referral No Information Social History Tobacco Use: Social History Observation Description Date Details (start date - stop date) Current Smoker NA - NA Tobacco Use/Smoking Question Answer Notes Are you a current smoker Are you interested in quitting? Ready to quit How many cigarettes a day do you smoke? 6-10 How soon after you wake up do you smoke your fir st cigarette? 31-60 minutes How often do you smoke cigarettes? every day Alcohol Screen (Audit-C) Question Answer Notes Did you have a drink contain ing alcohol in the past year? Yes Points 2 Interpretation Negative How often did you have 6 or more drinks on one occasion in the past year? Never (0 point) How many drinks did you have on a typical day when you were drinking in the past year? 1 or 2 drinks (0 point) How often did you have a dri nk containing alcohol in the past year? 2 to 4 times a month (2 points) Problems Problem Type SNOMED Code ICD Code Onset Dates Problem Status W/U Status Risk Notes Problem Excessive and frequent menstruation (112788975) Excessive and frequent menstruation with regular cycle (N92.0) Active confirmed Plan Of Treatment Pending Test Test Name Order Date Ultrasound : Sono Hystergram 03/30/2019 Insurance Providers Payer Name Payer Address Payer Phone Subscriber Number Group Number Insured Name Patient Relationship to Insured Coverage Start Date Coverage End Date [employer] [address] [facility] [address] [place], [place] [address] [id number] ALEX FERNANDEZ Self - patient is the insured Medical (General) History Medical History History ICD Code Other specified arthritis, unspecified s ite 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
== END 2024-05-03 10:44 | disposition home or self-care (01) ==
PROVIDERS: PCP Physician Assistant; Visit Provider Physician Assistant
DX: J32.9 Chronic sinusitis, unspecified (principal); B96.89 Other specified bacterial agents as the cause of diseases classified elsewhere; R55 Syncope and collapse; R07.9 Chest pain, unspecified; Z82.49 Family history of ischemic heart disease and other diseases of the circulatory system

== ENCOUNTER → 2024-05-24 07:39 | Outpatient (REF) | payer BC, SELFPAY ==
--- OUTSIDE RECORDS SUMMARY | 2024-05-24 07:42 | XMS_ITS | Patient Health Record ---
Author Organization [facility] Address [address] [place], [place] [id number] Care Team Providers Care Forest Scientist Name Role Phone ISELA KAPLAN Primary Care Provider Karine Williamson Unavailable [phone] REASON FOR REFERRAL No Information Encounters Encounter Location Date Provider Diagnosis [address] [id number] 07/29/2023 Karine Williamson PLAN OF TREATMENT No Information Insurance Providers Payer Name Payer Address Payer Phone Subscriber Number Group Number Insured Name Patient Relationship to Insured Coverage Start Date Coverage End Date [facility] [address] [place] [address] [id number] ALEX FERNANDEZ Self - patient is the insured
--- OUTSIDE RECORDS SUMMARY | 2024-05-24 07:43 | XMS_ITS ---
Author Organization [facility], [facility] Address [address] [place] [phone] Care Team Providers Care National Account Representative Name Role Phone ISELA KAPLAN Primary Care Provider Karine Williamson [phone] REASON FOR VISIT new patient, NO SHOW Encounters Encounter Location Date Provider Diagnosis [facility], [address] [id number] 07/29/2023 Karine Williamson PLAN OF TREATMENT No Information Progress Notes * HERBERTH FERNANDEZINDOB:1970 ([age] yo F)Acc No.[id number]:07/29/2023 Progress Notes Patient:??ALEX FERNANDEZ Provider:??Karine Williamson DNP :1970?Age:52 Y?Sex:Fe male Date:07/29/2023 Phone: Address:[address] [place] [address] [place], [place] Pcp:ISELA KAPLAN Subjective: * Chief Complaints: * [...]
--- OUTSIDE RECORDS SUMMARY | 2024-05-24 07:43 | XMS_ITS | Patient Health Record ---
Author Organization [facility] Address [address] [place] [address] Care Team Providers Care Fish Hatchery Specialist Name Role Phone ABIDA RICH Unavailable [phone] Reason For Referral No Information Social History [...] Risk Notes Problem Excessive and frequent menstruation (235387751) Excessive and frequent menstruation with regular cycle (N92.0) Active confirmed Plan Of Treatment Pending Test Test Name Order Date Ultrasound : Sono Hystergram 03/30/2019 Insurance Providers Payer Name Payer Address Payer Phone Subscriber Number Group Number Insured Name Patient Relationship to Insured Coverage Start Date Coverage End Date [employer] [address] [facility] [address] [place], [place] [id number] ALEX FERNANDEZ Self - patient is the insured Medical (General) History Medical History History ICD Code Other specified arthritis, unspecified s ite 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
--- NOTE | 2024-05-24 07:49 | CA_ITS ---
Acquisition Time: 2024-05-24 09:37:46 Total Exercise Time: 00:08:00 Test Indications: CP,Syncope,Palpitations Medications: ATORVASTATIN AMITRIPTYLINE Protocol: JT Max HR: 155 BPM 92% of Pred: 168 BPM Max BP: 168/72 mmHG Max Work Load: 10.1 METS Exercise Stress Test with exercise 8 mins of Jt Protocol, achieving 92% MPHR, with reports of mild SOB, no chest discomfort, without any arrythmias, with normotensive response to exercise. Without any EKG changes meetingcriteria for ischemia. In recovery, pt's breathing returned to baseline. Test reviewed with Dr. Whipple. Referred By: Rosanna Webb Electronically Signed By: Nomi Ang
== END ==
LOC: HO.CARD 07:39
PROVIDERS: PCP Physician Assistant; Visit Provider Physician Assistant
DX: R55 Syncope and collapse (principal); R07.9 Chest pain, unspecified; Z82.49 Family history of ischemic heart disease and other diseases of the circulatory system
CPT/HCPCS: 93017

== ENCOUNTER → 2024-05-24 07:49 | Outpatient (BNV) | payer BC, SELFPAY | PROVIDERS: PCP Physician Assistant | DX: R06.02 Shortness of breath (principal) | CPT/HCPCS: 93016; 93018 ==

== ENCOUNTER 2024-11-27 08:20 | Outpatient (AMB) | payer BC, SELFPAY ==
[2024-11-27 08:30] VITALS: BP 110/68; PULSE 79; BMI 32.3
--- NOTE | 2024-11-27 08:30 | MHC.OFFVIS ---
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 and collapse Allergies No Known Allergies Allergy (Verified 05/03/24 10:17) [facility] Medical History Depression Ankle swelling Asthma Family History Mother Lupus Father Alcoholism Cardiovascular disease Psychiatric illness Other Mental health disorder Substance use disorder Social History (Updated 05/03/24 @ 10:21 by Destinee Teresa CMA) Housing: House Alcohol intake: current Patient Tobacco Use Status: Former Tobacco user Tobacco use type: Cigarette Cigarettes Per Day: 3 Years Smoked: 30 years e-Cigarette/Vaping Use: Currently Using Substance Use Type: Marijuana service: No Current occupational status: employed 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 occupational 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/hazards: Yes (chemicals) Cognitive needs: No Hearing needs: No Vision needs: Yes Review of Systems Const Denies chills, Denies daytime sleepiness, Denies fatigue, Denies fever(s), Denies poor appetite, Denies snoring, Denies stops breathing during sleep, Denies weight gain and Denies weight loss Eyes Denies loss of vision Card Denies chest pain, Denies claudication, Denies leg edema, Denies lightheadedness, Denies palpitations, Denies dyspnea, Denies dyspnea on exertion and Denies orthopnea Resp Denies cough, Denies excessive phlegm production, Denies pain with cough, Denies dyspnea, Denies dyspnea on exertion, Denies snoring, Denies wheezing and Denies other GI Denies abdominal pain, Denies hematochezia, Denies change in bowel habits, Denies nausea and Denies vomiting Denies urinary frequency and Denies dysuria Musc Denies arthralgias and Denies muscle weakness Skin/Breast Denies nail changes and Denies rash Neuro Denies loss of vision and Denies memory loss Psych Denies depression, Reports difficulty concentrating, Denies auditory hallucinations and Denies memory loss Endo Denies fatigue and Denies palpitations Abilio/Lymph Denies easy bruising Aller/Immun Denies wheezing Coding
--- NOTE | 2024-11-27 08:40 | A.OFFVIS_ITS ---
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 The patient reported experiencing jaw pain and chest tightness on multiple occasions, with the first two instances occurring at the beginning of the year and the last in August. The episodes were random and not associated with physical activity, as she was a passenger in a car during the first two episodes. A stress test conducted in May did not reproduce the chest pain, and the patient was able to exercise for eight minutes without symptoms. The patient also experienced a syncope episode earlier this year, attributed to stress and exhaustion from work. She felt hot and heavy before passing out, and her noted she was walking unsteadily before he caught her. Her blood pressure is typically low, around 110 mmHg, which may contribute to occasional dizziness upon standing. The patient has a history of carotid artery stenosis, identified through a carotid Doppler, which led to the initiation of baby aspirin therapy. She also has hyperlipidemia, for which she is on cholesterol medication, and a follow-up appointment is scheduled to reassess her cholesterol levels. The patient has a significant smoking history of 35 years but quit over a year ago. 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 Current occupational exposures/hazards: Yes (chemicals) Cognitive needs: No Hearing needs: No Vision needs: Yes Review of Systems Const All systems reviewed & are unremarkable except as noted in HPI and below Reports as per HPI and Reports no additional complaints Eyes Reports as per HPI and Denies no additional complaints ENT Denies no additional complaints and Reports as per HPI Card Reports as per HPI, Reports no additional complaints, Denies acrocyanosis, Reports chest pain, Denies leg edema, Reports lightheadedness, Denies palpitations and Denies dyspnea Resp Reports as per HPI, Denies no additional complaints and Denies dyspnea GI Reports as per HPI and Denies no additional complaints Reports as per HPI Musc Reports no additional complaints and Reports as per HPI Skin/Breast Reports system reviewed and no additional complaints, except as documented Neuro Reports no additional complaints and Reports as per HPI Psych Reports no additional complaints and Reports as per HPI Endo Reports no additional complaints, Reports as per HPI and Denies palpitations Abilio/Lymph Reports no additional complaints and Reports as per HPI Aller/Immun Reports no additional complaints and Reports as per HPI Physical Exam Vital Signs: Last Vital Signs Pulse 79 11/27/24 08:30 BP 110/68 11/27/24 08:30 BMI result Body Mass Index 32.3 Const General: comfortable and no acute distress Orientation/consciousness: patient oriented x3 HEENT Other: Unremarkable Head: Yes normal to inspection Neck Neck: Yes normal visual inspection Chest Chest palpation & inspection: normal inspection of the chest Resp Auscultation: clear to auscultation bilaterally Cardio Palpation: normal PMI Heart sounds: S1 normal heart sound present, S2 normal heart sound present, no gallops, no murmurs and no rubs GI Palpation (GI): Soft to palpation Back/Spine/Pelvis Other: unremarkable Skin General skin exam: no rashes or lesions noted Neuro General: patient oriented x3 Extrem General: Yes normal to inspection Psych Mental Status: mental status grossly normal Office Procedures EKG Details: EKG with underlying sinus rhythm at 79/Min; no ischemic changes; [place] [id number], Complete Assessment & Plan Assessment & Plan (1) Chest pain: Code(s): R07.9 - Chest pain, unspecified Category: Medical Qualifiers: Chest pain type: unspecified Qualified Code(s): R07.9 - Chest pain, unspecified Plan: Baseline EKGs unremarkable. Echocardiogram with LVEF of 60-65%. No significant valvular findings and otherwise unremarkable. In the stress test, she was able to exercise for 10.1 METS on Donald protocol and reached target heart rate but had no chest pain. No EKG evidence of ischemia. We will plan on coronary CTA for further evaluation. (2) Syncope: Code(s): R55 - Syncope and collapse Category: Medical Plan: The syncope episode was likely related to stress and exhaustion/low blood pressure, with no recurrence reported. The patient is advised to monitor for any future episodes and seek medical attention if they occur. (3) Carotid stenosis, right: Code(s): I65.21 - Occlusion and stenosis of right carotid artery Category: Medical Plan: In the carotid ultrasound, 50-79% stenosis in the right internal carotid and 0- 49% in the left internal carotid. She is on aspirin. Follow up with vascular surgery. (4) Hyperlipidemia: Code(s): E78.5 - Hyperlipidemia, unspecified Category: Medical Qualifiers: Hyperlipidemia type: pure hypercholesterolemia Qualified Code(s): E78.00 - Pure hypercholesterolemia, unspecified Plan: Last LDL 165 mg/dL. On statins. Due for recheck. May need higher doses. Plan Discussion Notes I discussed with the patient the plan to perform a coronary CT scan to evaluate for coronary artery disease, given her symptoms of jaw pain and chest tightness. We reviewed the importance of monitoring her symptoms and seeking emergency care if they worsen or do not resolve. The patient was informed about the need to reassess her cholesterol levels and adjust her medication if necessary. Patient was informed and verbally consented to the use of an ambient scribe for clinic note documentation during this visit. Orders: Orders Basic Metabolic Panel Today R07.9 - Chest pain, unspecified CT Cardiac Coronary Angio Today I25.10 - Atherosclerotic heart disease of [place] coronary artery without angina pectoris, R07.9 - Chest pain, unspecified Patient Instructions: - Undergo the scheduled coronary CT scan to check for any heart blockages. - Monitor for any recurrence of jaw pain, chest tightness, or syncope and seek medical attention if symptoms persist or worsen. - Attend the follow-up appointment to reassess cholesterol levels. Coding Level of Care Code New Pt Level 4 (05192) Complex EM visit Add On G2211 Diagnoses Chest pain, unspecified type R07.9 Chest pain type: unspecified Syncope R55 Carotid stenosis, right I65.21 Pure hypercholesterolemia E78.00 Hyperlipidemia type: pure hypercholesterolemia CPT Codes EKG - CPT: 17487-[id number], Complete ([id number])
--- OUTSIDE RECORDS SUMMARY | 2024-11-27 09:14 | XMS_ITS | Patient Health Record ---
Author Organization [facility] Address [address] [place] [address] Care Team Providers Care Construction Sales Manager Name Role Phone ABIDA RICH Unavailable [phone] Reason For Referral No Information Social History [...] Risk Notes Problem Excessive and frequent menstruation ([id number]) Excessive and frequent menstruation with regular cycle (N92.0) Active confirmed Plan Of Treatment Pending Test Test Name Order Date Ultrasound : Sono Hystergram 03/30/2019 Insurance Providers Payer Name Payer Address Payer Phone Subscriber Number Group Number Insured Name Patient Relationship to Insured Coverage Start Date Coverage End Date RELIANCE [employer] [address] [place], [place] [address] [id number] ALEX FERNANDEZ Self - patient is the insured Medical (General) History Medical History History ICD Code Other specified arthritis, unspecified s ite 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
== END 2024-11-27 09:02 | disposition home or self-care (01) ==
LOC: HO.HCS 08:21
PROVIDERS: PCP Physician Assistant; Visit Provider Internal Medicine
DX: R07.9 Chest pain, unspecified (principal); R55 Syncope and collapse; I65.21 Occlusion and stenosis of right carotid artery; E78.00 Pure hypercholesterolemia, unspecified
CPT/HCPCS: 93010; 99204

== ENCOUNTER → 2024-11-27 08:20 | Outpatient (BNVA) | payer BC, SELFPAY | PROVIDERS: PCP Physician Assistant; Visit Provider Internal Medicine | DX: R55 Syncope and collapse (principal) | CPT/HCPCS: 93005 ==

== ENCOUNTER 2024-12-04 13:44 | Outpatient (REF) | payer BC, SELFPAY ==
--- NOTE | ~2024-12-04 | MM_ITS ---
EXAMINATION: MM SCREENING DIGITAL BREAST TOMOSYNTHESIS, BILATERAL CLINICAL INFORMATION: Screening. Asymptomatic. COMPARISON: Comparison made to multiple prior, most recent November 29, 2023, and most remote September 03, 2020. TECHNIQUE: Digital breast tomosynthesis is performed in mediolateral oblique and craniocaudal views along with computer-aided detection (CAD). Synthesized 2D images are generated from the tomosynthesis. FINDINGS: BREAST COMPOSITION: There are scattered areas of fibroglandular density (ACR BI-RADS breast composition Category b). BILATERAL BREASTS: No significant masses, suspicious calcifications or other abnormalities are seen in either breast. MM/MM tomosynthesis screening BI IMPRESSION: BILATERAL BREASTS: Negative, no mammographic evidence of malignancy. Normal interval follow-up is recommended in 12 months. ASSESSMENT: BI-RADS 1 - Negative RECOMMENDATION: Routine annual mammography screening. FOLLOW-UP: 1 year F/U This examination should not preclude the clinical evaluation of a suspicious palpable abnormality. This patient's information was entered into a reminder system with a target due date for their next mammogram. Electronically signed by: Heavenly Grace MD 12/05/2024 06:14 PM EDT
--- OUTSIDE RECORDS SUMMARY | 2024-12-04 19:00 | XMS_ITS | Patient Health Record ---
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 Name Role Phone ABIDA RICH Unavailable [phone] Reason For Referral No Information Social History [...] Risk Notes Problem Excessive and frequent menstruation ([id number]) Excessive and frequent menstruation with regular cycle (N92.0) Active confirmed Plan Of Treatment Pending Test Test Name Order Date Ultrasound : Sono Hystergram 03/30/2019 Insurance Providers Payer Name Payer Address Payer Phone Subscriber Number Group Number Insured Name Patient Relationship to Insured Coverage Start Date Coverage End Date RELIANCE [employer] [address] [place], [place] [address] [id number] ALEX FERNANDEZ Self - patient is the insured Medical (General) History Medical History History ICD Code Other specified arthritis, unspecified s ite 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
== END 2024-12-04 13:45 | disposition home or self-care (01) ==
LOC: HO.MAMMO 13:44
PROVIDERS: PCP Physician Assistant; Visit Provider Physician Assistant
DX: Z12.31 Encounter for screening mammogram for malignant neoplasm of breast (principal)
CPT/HCPCS: 77063; 77067

== ENCOUNTER → 2024-12-04 14:00 | Outpatient (BNV) | payer BC, SELFPAY | PROVIDERS: PCP Physician Assistant; Visit Provider Radiology Body Imaging | DX: Z12.31 Encounter for screening mammogram for malignant neoplasm of breast (principal) | CPT/HCPCS: 77063; 77067 ==

== ENCOUNTER 2024-12-06 15:01 | Outpatient (AMB) | payer BC, SELFPAY ==
--- NOTE | 2024-12-06 15:23 | A.OFFPC_ITS ---
Vital Signs 12/06/24 15:25 Height 5 ft 1 in Weight 167 lb 2 oz BMI 31.6 BP 110/70 Blood Pressure Location Lt brachial Position Sitting Respiration 12 Pulse 80 Pulse Source Pulse Oximeter Pulse Oximetry (%) 97 Oxygen Delivery Method Room Air Intake Visit Reasons: 3m f/u Reschedule from 10/25 Intake Note: Three month follow up Lead Android Developer Required: No Allergies No Known Allergies Allergy (Verified 12/06/24 15:29) Medication List - Last Reconciled 12/06/24 by Rosanna Webb PA-C albuterol sulfate 90 mcg/actuation 2 puffs inhalation Q6H PRN amitriptyline 10 mg PO BEDTIME [Ashwagandha .] aspirin 81 mg PO DAILY atorvastatin 10 mg PO BEDTIME [estroven .] Tobacco use date assessed: 12/06/24 Dental Screening Dental Screen Date: 11/17/23 HPI 3m f/u Reschedule from 10/25 HPI Details Pt is a 54 y/o female who presents today to f/u. CV: on aspirin and atorvastatin. Scheduled for a coronary artery CT. Following with cardiology Vasc: Has known right coronary artery stenosis and is on aspirin and statin therapy. Following with vascular surgery for this Mammo: utd, 2 days ago Pap: UTD Colonoscopy: never heard Former smoker- smoked for 40 years, smoked 1/2 ppd, quit 3 months ago PFSH Medical History Depression Ankle swelling Asthma Family History Mother Lupus Father Alcoholism Cardiovascular disease Psychiatric illness Other Mental health disorder Substance use disorder Social History (Updated 12/06/24 @ 15:31 by Destinee Teresa CMA) Housing: House Alcohol intake: current Patient Tobacco Use Status: Former Tobacco user Tobacco use type: Cigarette Cigarettes Per Day: 3 Years Smoked: 30 years e-Cigarette/Vaping Use: Currently Using Substance Use Type: Marijuana service: No Current occupational status: employed 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 occupational 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/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: 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 (chemicals) Cognitive needs: No Hearing needs: No Vision needs: Yes Questionnaire Thrive Questionnaire Date Thrive assessed: 03/23/24 I am a: Patient What is your living situation today?: I have a steady place to live Within the past 12 months, did the food you bought not last and you didn't have the money to get more?: Never true Within the past 12 months, did you worry whether your food would run out before you got money to buy more?: Never true Do you have trouble paying for medicines?: No Do you have trouble getting transportation to medical appointments?: No Do you have trouble paying your heating and electricity bill?: No Do you have trouble taking care of your child, family member or friend?: No Do you have trouble with day-to-day activities such as bathing, preparing meals, shopping, managing finances, etc.?: No Are you currently unemployed and looking for a job?: No Are you interested in more education?: No Please select the resources that you would like help with: None Currently or been in a relationship where the following occur: No concerns reported THRIVE Score: 0 AUDIT C Alcohol Use Questionnaire (AUDIT-C) 1. How often do you have a drink containing alcohol?: Monthly or less 2. How many drinks containing alcohol do you have on a typical day when you are drinking?: 1 or 2 3. How often do you have six or more drinks on one occasion?: Never Total Score: 1 CARLOS MANUEL-7 AMB Questionnaire CARLOS MANUEL-7 Date CARLOS MANUEL - 7 assessed: 03/23/24 Source: Developed by Drs. Nile Duenas, Leanne Rasmussen, Michael Jj and colleagues, with an educational theodore from [employer]. Physical exam (Primary Care) Vital Signs: Last Vital Signs Pulse 80 12/06/24 15:25 Resp 12 12/06/24 15:25 BP 110/70 12/06/24 15:25 Pulse Ox 97 12/06/24 15:25 Oxygen Delivery Method Room Air 12/06/24 15:25 BMI result Body Mass Index 31.6 Tobacco/Smoking Status: Tobacco use Status Tobacco use date assessed 12/06/24 12/06/24 15:31 Patient Tobacco Use Status Former Tobacco user 12/06/24 15:31 Tobacco use type Cigarette 12/06/24 15:31 e-Cigarette/Vaping Use Currently Using 12/06/24 15:31 Thrive Assessment: Date of Thrive Assessment Date Thrive assessed 03/23/24 12/06/24 15:31 Currently or been in a relationship where the following occur: No concerns reported Const Orientation/consciousness: patient oriented x3 HENMT Ears: hearing grossly normal bilaterally Neck Thyroid: Thyroid normal Lymphatic: no lymphadenopathy noted Resp Auscultation: clear to auscultation bilaterally Cardio Rate: regular rate Rhythm: regular rhythm Heart sounds: S1 normal heart sound present and S2 normal heart sound present GI Inspection: Yes normal to inspection Palpation (GI): Soft to palpation and Other GI palpation findings present (nontender, no cva tenderness) Auscultation: normoactive bowel sounds Rectal Exam - Female: deferred Skin General skin exam: no rashes or lesions noted Neuro General: patient oriented x3, gait normal and no focal motor deficits Results Reviewed Results Reviewed: Laboratory Tests 03/20/24 03/23/24 06:27 09:55 WBC 8.7 RBC 4.03 L Hgb 13.0 Hct 38.1 Plt Count 428 H Sodium 140 Potassium 4.1 Chloride 109 H Carbon Dioxide 23 Anion Gap 12 BUN 12 Creatinine 0.85 Estimated GFR > 60 Random Glucose 82 AST 18 ALT 21 Triglycerides 139 Cholesterol 248 H LDL Cholesterol, Calc 165 H HDL Cholesterol 56 Vitamin B12 453 Folate 7.5 TSH 1.34 Coding Level of Care Code Est Pt Level 4 (75963) Complex EM visit Add On G2211 Diagnoses Pure hypercholesterolemia E78.00 Hyperlipidemia type: pure hypercholesterolemia Carotid stenosis, right I65.21 Fam hx-ischem heart disease Z82.49 Assessment & Plan Assessment & Plan (1) Hyperlipidemia: Code(s): E78.5 - Hyperlipidemia, unspecified Category: Medical Qualifiers: Hyperlipidemia type: pure hypercholesterolemia Qualified Code(s): E78.00 - Pure hypercholesterolemia, unspecified Plan: We will monitor lipids. Labs ordered. (2) Carotid stenosis, right: Code(s): I65.21 - Occlusion and stenosis of right carotid artery Category: Medical Plan: Following with vascular surgery. Continue aspirin in atorvastatin. (3) Fam hx-ischem heart disease: Code(s): Z82.49 - Family history of ischemic heart disease and other diseases of the circulatory system Category: Medical Plan: Has follow up with Cardiology Plan Referred back to GI Orders: Referrals Gastroenterology Referral Z12.11 - Encounter for screening for malignant neoplasm of colon Patient Instructions: [phone]-ultrasound carotids GI schould call you in a couple weeks, let me know if you do not hear
[2024-12-06 15:25] VITALS: BP 110/70; PULSE 80; RESP 12; O2SAT 97; BMI 31.6
--- OUTSIDE RECORDS SUMMARY | 2024-12-06 18:34 | XMS_ITS | Patient Health Record ---
Author Organization [facility] Address [address] [place] [address] Care Team Providers Care Director Of Accounting Name Role Phone ABIDA RICH Unavailable [phone] Reason For Referral No Information Social History [...] Risk Notes Problem Excessive and frequent menstruation ([id number]) Excessive and frequent menstruation with regular cycle (N92.0) Active confirmed Plan Of Treatment Pending Test Test Name Order Date Ultrasound : Sono Hystergram 03/30/2019 Insurance Providers Payer Name Payer Address Payer Phone Subscriber Number Group Number Insured Name Patient Relationship to Insured Coverage Start Date Coverage End Date RELIANCE [employer] 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
== END 2024-12-06 15:49 | disposition home or self-care (01) ==
LOC: HO.HMCFM 15:02
PROVIDERS: PCP Physician Assistant; Visit Provider Physician Assistant
DX: E78.00 Pure hypercholesterolemia, unspecified (principal); I65.21 Occlusion and stenosis of right carotid artery; Z82.49 Family history of ischemic heart disease and other diseases of the circulatory system

== ENCOUNTER 2024-12-15 06:31 | Outpatient (REF) | payer BC, SELFPAY ==
--- OUTSIDE RECORDS SUMMARY | 2024-12-15 06:34 | XMS_ITS | Patient Health Record ---
Author Organization [facility] Address [address] [place] [address] Care Team Providers Care Embroidery Finisher Name Role Phone ABIDA RICH Unavailable [phone] Reason For Referral No Information Social History [...] Risk Notes Problem Excessive and frequent menstruation ([id number]) Excessive and frequent menstruation with regular cycle (N92.0) Active confirmed Plan Of Treatment Pending Test Test Name Order Date Ultrasound : Sono Hystergram 03/30/2019 Insurance Providers Payer Name Payer Address Payer Phone Subscriber Number Group Number Insured Name Patient Relationship to Insured Coverage Start Date Coverage End Date RELIANCE ST[employer] [address] [place], [place] [address] [id number] ALEX FERNANDEZ Self - patient is the insured Medical (General) History Medical History History ICD Code Other specified arthritis, unspecified s ite 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
[2024-12-15 08:20] LABS: Alanine Aminotransferase 17 U/L (0-31); Albumin Level 4.3 g/dL (3.5-5.0); Alkaline Phosphatase 78 U/L (39-117); Anion Gap 12 (12-20); Aspartate Amino Transferase 23 U/L (5-31); Blood Urea Nitrogen 14 mg/dL (9-16); Calcium 9.0 mg/dL (8.4-10.2); Carbon Dioxide 25 mmol/L (22-29); Chloride 106 mmol/L (96-108); Cholesterol 167 mg/dL (<200); Estimated Glomerular Filt Rate > 60; HDL Cholesterol 48 mg/dL (>40); Potassium 4.0 mmol/L (3.3-5.1); Sodium 139 mmol/L (135-145); Total Protein 6.7 g/dL (6.5-8.0); Triglycerides 92 mg/dL (<150)
== END 2024-12-15 06:32 | disposition home or self-care (01) ==
LOC: HO.LAB 06:31
PROVIDERS: PCP Physician Assistant; Visit Provider Physician Assistant
DX: J32.9 Chronic sinusitis, unspecified (principal); E78.00 Pure hypercholesterolemia, unspecified; R07.9 Chest pain, unspecified; B96.89 Other specified bacterial agents as the cause of diseases classified elsewhere
CPT/HCPCS: 36415; 80048; 80061; 80076